=== PATIENT | male | born 1985 | race Hispanic/Latino ===

== ENCOUNTER 2017-09-14 22:05 | Inpatient (IN) | payer MEDICAID ==
[2017-09-14 22:05] VITALS: BMI 41.3
--- NOTE | 2017-09-14 22:18 | ED PDOC ---
Arrival/HPI - General Time Seen by Provider: 09/14/17 22:07 Historian: Patient - History of Present Illness Narrative History of Present Illness (Text): 09/14/17 22:15 Gee Saravia is 32 year old male who presents to the Emergency department brought in by EMS for substance abuse/possible overdose tonight. As per EMS, patient was found unresponsive at home with agonal respirations by a friend. EMS was notified and patient became more responsive en route to the hospital. As per EMS, friend was unsure what patient may have taken tonight. Patient states he "was tired and just fell asleep." Limited HPI and ROS secondary to patient's altered mental status. Time/Duration: Other (tonight) Symptom Course: Unchanged Activities at Onset: Light Context: Home Past Medical History - Provider Review Nursing Documentation Reviewed: Yes - Infectious Disease Hx of Infectious Diseases: None - Tetanus Immunization Tetanus Immunization: Unknown - Past Medical History Past Medical History: No Previous - Pulmonary Hx Respiratory Disorders: Yes Hx Sleep Apnea: Yes ( c pap does not know setting) - Integumentary Hx Dermatological Disorder: Yes (sutures upper right lip scab left forhead cheek ) - Musculoskeletal/Rheumatological Hx Fractures: Yes (LEFT WRIST RIGHT HAND) - Psychiatric Hx Anxiety: Yes Hx Substance Use: No - Surgical History Hx Open Reduction Internal Fixation: Yes (LEFT WRIST RIGHT HAND) - Anesthesia Hx Anesthesia: Yes Hx Anesthesia Reactions: No - Suicidal Assessment Feels Threatened In Home Enviroment: No Family/Social History - Physician Review Nursing Documentation Reviewed: Yes Family/Social History: Unknown Family HX Smoking Status: Current Some Days Smoker Hx Alcohol Use: No Hx Substance Use: No Allergies/Home Meds Allergies/Adverse Reactions: Allergies No Known Allergies Allergy (Verified 11/05/14 21:57) Home Medications: Home Meds Medication Instructions Recorded Confirmed Unobtainable 09/14/17 09/14/17 Review of Systems - Review of Systems Systems not reviewed;Unavailable: Altered Mental Status Physical Exam Vital Signs Reviewed: Yes Vital Signs Temp Pulse Resp BP Pulse Ox 09/15/17 00:15 104 H 16 138/84 96 09/14/17 23:49 102 H 20 143/66 95 09/14/17 22:56 99.0 F 109 H 20 138/87 97 Temperature: Afebrile Blood Pressure: Normal Pulse: Regular Pain Distress: None Mental Status: Positive for: other (Somnolent) - Systems Exam Head: Present: Atraumatic, Normocephalic Pupils: Present: PERRL Extroacular Muscles: Present: EOMI Conjunctiva: Present: Normal Mouth: Present: Moist Mucous Membranes Neck: Present: Normal Range of Motion Respiratory/Chest: Present: Clear to Auscultation, Good Air Exchange. No: Respiratory Distress, Accessory Muscle Use Cardiovascular: Present: Regular Rate and Rhythm, Normal S1, S2. No: Murmurs Abdomen: No: Tenderness, Distention, Peritoneal Signs Back: Present: Normal Inspection Upper Extremity: Present: Normal Inspection. No: Cyanosis, Edema Lower Extremity: Present: Normal Inspection. No: Edema Neurological: Present: GCS=15, CN II-XII Intact Skin: Present: Warm, Dry, Normal Color. No: Rashes Psychiatric: No: Alert (Somnolent) Medical Decision Making ED Course and Treatment: 09/14/17 22:15 Impression: 32 year old male brought in by EMS for substance abuse/possible overdose tonight. Plan: -- CXR -- Labs, alcohol level -- Urinalysis, urine drug screen -- Reassess and disposition Progress Notes: 09/14/17 22:48 Father now present at bedside. States pt is an IV heroin abuser. 09/14/17 22:57 Reviewed EKG, sinus tachycardia at [address]/T wave changes. Pt bradypneic. Narcan was ordered, Pt admits to heroin use, states he snorted heroin tonight. 09/14/17 23:10 Chest X-ray reviewed, shows questionable infiltrate in left upper lobe. 09/14/17 23:21 Pt somnolent again. Second dose of Narcan was ordered. Case discussed with Dr. Peralta, requests pt go to hospitalist service. 09/14/17 23:38 Case discussed with medical records secretary survey operations director, who is aware and agrees with plan. Forest Resources Professor paged. 09/14/17 23:50 Pt received 2 rounds of Narcan, due to bradynea and hypoxia. Chest X-ray shows left upper lobe developig infiltrate. Will cover for aspiration. Case discussed with Dr. Sanon, who is aware and agrees with plan. Pt will be admitted to the ICU for pneumonia and overdose under the hospitalist service. - Lab Interpretations Lab Results: 09/14/17 22:47 09/14/17 22:47 Lab Results 09/14/17 23:14: Urine Opiates Screen Positive H, Urine Methadone Screen Negative , Ur Barbiturates Screen Negative, Ur Phencyclidine Scrn Positive H, Ur Amphetamines Screen Negative, U Benzodiazepines Scrn Positive, U Oth Cocaine Metabols Positive H, U Cannabinoids Screen Positive H 09/14/17 23:14: Urine Color Yellow, Urine Appearance Clear, Urine pH 6.0, Ur Specific [place] 1.025, Urine Protein Negative, Urine Glucose (UA) Negative, Urine Ketones Negative, Urine Blood Negative, Urine Nitrate Negative, Urine Bilirubin Negative, Urine Urobilinogen 0.2, Ur Leukocyte Esterase Negative 09/14/17 22:47: TSH 3rd Generation 0.95 09/14/17 22:47: Hemoglobin A1c 5.6 09/14/17 22:47: Alcohol, Quantitative < 10 09/14/17 22:47: Salicylates < 1 L, Acetaminophen < 10.0 L 09/14/17 22:47: Sodium 145, Potassium 4.9, Chloride 106, Carbon Dioxide 29, Anion Gap 15, BUN 19, Creatinine 0.9, Est GFR ( Amer) > 60, Est GFR (Non- Af Amer) > 60, Random Glucose 100, Calcium 9.3, Total Bilirubin 0.3, AST 17, ALT 24, Alkaline Phosphatase 54, Total Protein 8.1, Albumin 4.3, Globulin 3.7, Albumin/Globulin Ratio 1.2 09/14/17 22:47: WBC 14.9 H, RBC 5.23, Hgb 14.9, Hct 45.5, MCV 87.0, MCH 28.5, MCHC 32.7, RDW 14.3, Plt Count 225, MPV 10.4, Gran % 80.1 H, Lymph % (Auto) 13.8 L, [place] % (Auto) 5.1, Eos % (Auto) 0.8 L, Baso % (Auto) 0.2, Gran # 11.97 H , Lymph # (Auto) 2.1, [place] # (Auto) 0.8 H, Eos # (Auto) 0.1, Baso # (Auto) 0.03 I have reviewed the lab results: Yes - RAD Interpretation Radiology Orders: 09/14/17 22:33 CHEST PORTABLE [RAD] Stat Marine Engine Machinist: ED Physician - EKG Interpretation Interpreted by ED Physician: Yes Type: 12 lead EKG - Medication Orders Current Medication Orders: Acetaminophen (Tylenol 325mg Tab) 650 mg PO Q6H PRN PRN Reason: Fever >100.4 F Albuterol/Ipratropium (Duoneb 3 Mg/0.5 Mg (3 Ml) Ud) 3 ml IH [id number] KD Last Admin: 09/15/17 13:26 Dose: 3 ml Enoxaparin Sodium (Lovenox) 40 mg SC DAILY KD PRN Reason: Protocol Last Admin: 09/15/17 14:06 Dose: 40 mg Subcutaneous Administrations Document 09/15/17 14:06 [facility] (Rec: 09/15/17 14:06 [id number] Injection Site MAR Injection Site Left Abdomen Charges for Administration # of Subcutaneous Administrations 1 Levofloxacin/Dextrose (Levaquin 750mg) 750 mg in 150 mls @ 100 mls/hr IVPB DAILY KD PRN Reason: Protocol Last Admin: 09/15/17 10:52 Dose: 100 mls/hr eMAR Start Stop Document 09/15/17 10:52 [facility] (Rec: 09/15/17 10:52 [id number]) Intravenous Solution Start Date 09/15/17 Start Time 10:52 End Date 09/15/17 End time 12:25 Total Infusion Time 93 Ondansetron HCl (Zofran Inj) 4 mg IVP Q6H PRN PRN Reason: Nausea/Vomiting Pantoprazole Sodium (Protonix Ec Tab) 40 mg PO 0600 KD Discontinued Medications Metronidazole (Flagyl) 500 mg in 100 mls @ 100 mls/hr IVPB STAT STA PRN Reason: Protocol Stop: 09/15/17 00:16 Last Admin: 09/14/17 23:32 Dose: 100 mls/hr eMAR Start Stop Document 09/14/17 23:32 AD (Rec: 09/14/17 23:36 AD [id number]) Intravenous Solution Start Date 09/14/17 Start Time 23:36 Levofloxacin/Dextrose (Levaquin 750mg) 750 mg in 150 mls @ 100 mls/hr IVPB STAT STA PRN Reason: Protocol Stop: 09/15/17 00:46 Last Admin: 09/15/17 01:55 Dose: 100 mls/hr Comments: wasn't given in ED eMAR Start Stop Document 09/15/17 01:55 [facility] (Rec: 09/15/17 01:56 [facility] [id number]) Intravenous Solution Start Date 09/15/17 Start Time 01:56 Metronidazole (Flagyl) 500 mg in 100 mls @ 100 mls/hr IVPB Q8 KD PRN Reason: Protocol Last Admin: 09/15/17 06:01 Dose: 100 mls/hr eMAR Start Stop Document 09/15/17 06:01 MG (Rec: 09/15/17 06:02 MG [id number]) Intravenous Solution Start Date 09/15/17 Start Time 06:01 End Date 09/15/17 End time 07:01 Total Infusion Time 60 Sodium Chloride (Sodium Chloride 0.9%) 1,000 mls @ 120 mls/hr IV .Q8H20M KD Last Admin: 09/15/17 14:08 Dose: 120 mls/hr eMAR Start Stop Document 09/15/17 14:08 [facility] (Rec: 09/15/17 14:08 [id number]) Intravenous Solution Start Date 09/15/17 Start Time 14:08 Naloxone HCl 2.4 mg/ Sodium (Chloride) 240 mls @ 100 mls/hr IV .Q2H24M ONE; 1 MG/HR PRN Reason: Protocol Stop: 09/15/17 02:57 Last Admin: 09/15/17 00:57 Dose: 100 mls/hr eMAR Start Stop Document 09/15/17 00:57 AD (Rec: 09/15/17 00:57 AD [id number]) Intravenous Solution Start Date 09/15/17 Start Time 00:57 Acetaminophen (Ofirmev) 1,000 mg in 100 mls @ 400 mls/hr IVPB Q6H PRN PRN Reason: Temperature Stop: 09/17/17 02:05 Last Admin: 09/15/17 02:18 Dose: 400 mls/hr eMAR Start Stop Document 09/15/17 02:18 [facility] (Rec: 09/15/17 02:18 [facility] [id number]) Intravenous Solution Start Date 09/15/17 Start Time 02:18 MAR Pain Assessment Document 09/15/17 02:18 [facility] (Rec: 09/15/17 02:18 [facility] [id number]) Pain Reassessment Is this a pain reassessment? No Sleep Is patient sleeping during reassessment? Yes Re-Assess: MAR Pain Assessment Document 09/15/17 03:18 [facility] (Rec: 09/15/17 04:25 [id number]) Pain Reassessment Is this a pain reassessment? No Sleep Is patient sleeping during reassessment? Yes Naloxone HCl 2.4 mg/ Sodium (Chloride) 240 mls @ 100 mls/hr IV .Q2H24M KD; 1 MG/HR PRN Reason: Protocol Stop: 09/15/17 10:56 Last Admin: 09/15/17 07:08 Dose: 100 mls/hr eMAR Start Stop Document 09/15/17 07:08 MG (Rec: 09/15/17 07:11 MG [id number]) Intravenous Solution Start Date 09/15/17 Start Time 07:09 End Date 09/15/17 End time 09:30 Total Infusion Time 141 Naloxone HCl (Narcan) 0.4 mg IVP STAT STA Stop: 09/14/17 22:48 Last Admin: 09/14/17 22:50 Dose: 0.4 mg IVP Administration Document 09/14/17 22:50 AD (Rec: 09/14/17 23:00 AD [id number]) Charges for Administration # of IVP Administrations 1 Naloxone HCl (Narcan) 1 mg IVP STAT STA Stop: 09/14/17 23:17 Last Admin: 09/14/17 23:20 Dose: 1 mg IVP Administration Document 09/14/17 23:20 AD (Rec: 09/14/17 23:36 AD [id number]) Charges for Administration # of IVP Administrations 1 Pantoprazole Sodium (Protonix Inj) 40 mg IVP DAILY KD Last Admin: 09/15/17 12:07 Dose: 40 mg IVP Administration Document 09/15/17 12:07 [facility] (Rec: 09/15/17 14:08 KAC [id number]) Charges for Administration # of IVP Administrations 1 - Scribe Statement The provider has reviewed the documentation as recorded by the Olya Erickson Provider Scribe Attestation: All medical record entries made by the Scribe were at my direction and personally dictated by me. I have reviewed the chart and agree that the record accurately reflects my personal performance of the history, physical exam, medical decision making, and the department course for this patient. I have also personally directed, reviewed, and agree with the discharge instructions and disposition. Disposition/Present on Arrival - Present on Arrival Any Indicators Present on Arrival: No History of DVT/PE: No History of Uncontrolled Diabetes: No Urinary Catheter: No History Surgical Site Infection Following: None - Disposition Have Diagnosis and Disposition been Completed?: Yes Diagnosis: Overdose, Pneumonia Disposition: HOSPITALIZED Disposition Time: 07:00 Patient Problems: Current Active Problems Problem Status Onset Overdose Acute Pneumonia Acute Condition: CRITICAL
[2017-09-14] MEDS ORDERED: Naloxone 0.4 mg/ml Inj (Adult) IVP STA ×2 (22:47→23:16)
[2017-09-14] MEDS ORDERED: Naloxone 0.4 mg/ml Inj (Adult) ONE (22:50)
[2017-09-14 22:55] LABS: BASO # 0.03 K/mm3 (0.0-2.0); BASO % 0.2 % (0.0-3.0); EOS # 0.1 (0.0-0.7); EOS % 0.8 % (1.5-5.0); GRAN # 11.97 (1.4-6.5); GRAN % 80.1 % (50.0-68.0); HEMOGLOBIN 14.9 g/dL (14.0-18.0); LYMPH # 2.1 (1.2-3.4); LYMPH % 13.8 % (22.0-35.0); MEAN CORPUSCULAR HEMOGLOBIN 28.5 pg (25.0-35.0); MEAN CORPUSCULAR HGB CONC 32.7 g/dl (31.0-37.0); MEAN PLATELET VOLUME 10.4 fl (7.0-11.0); MONO # 0.8 (0.1-0.6); MONO % 5.1 % (1.0-6.0); RBC 5.23 10^6/uL (3.5-6.1); RED CELL DISTRIBUTION WIDTH 14.3 % (11.5-14.5); WHITE BLOOD COUNT 14.9 10^3/ul (4.5-11.0)
[2017-09-14 23:05] LABS: ACETAMINOPHEN < 10.0 ug/ml (10.0-20.0); SALICYLATE < 1 mg/dL (2.0-20.0)
[2017-09-14 23:08] LABS: ALB/GLOB RATIO 1.2 (1.1-1.8); ALBUMIN 4.3 g/dL (3.0-4.8); ALT/SGPT 24 U/L (7-56); AST/SGOT 17 U/L (17-59); BLOOD UREA NITROGEN 19 mg/dL (7-21); CALCIUM 9.3 mg/dL (8.4-10.5); GFR AFRICAN-AMERICAN > 60; GFR NON-AFRICAN AMERICAN > 60
[2017-09-14] MEDS ORDERED: metroNIDAZOLE IV 500 mg/100 ml 500 MG/100 ML BAG IVPB STA (23:17)
[2017-09-14] MEDS ORDERED: levoFLOXacin 750 mg in D5W 750 MG/150 ML BAG IVPB STA (23:17)
[2017-09-14 23:20] LABS: URINE BILIRUBIN NEGATIVE (NEGATIVE); URINE BLOOD NEGATIVE (NEGATIVE); URINE GLUCOSE (UA) NEGATIVE (NEGATIVE); URINE LEUKOCYTE ESTERASE NEGATIVE Leu/uL (NEGATIVE); URINE PROTEIN NEGATIVE mg/dL (<30 mg/dL); URINE UROBILINOGEN 0.2 E.U./dL (<1 E.U./dL)
[2017-09-14 23:21] LABS: URINE APPEARANCE CLEAR (CLEAR); URINE COLOR YELLOW (YELLOW)
[2017-09-14 23:46] LABS: BARBITURATES, UR NEGATIVE (NEGATIVE); BENZODIAZEPINES, UR POSITIVE (NEGATIVE); OPIATES, UR POSITIVE (NEGATIVE); PHENCYCLIDINE, UR POSITIVE (NEGATIVE)
[2017-09-15] MEDS ORDERED: Naloxone 2.4 MG in Sodium Chloride 0.9% 244 ML IV ONE ×2 (00:13→00:34)
--- NOTE | 2017-09-15 00:26 | CP.PCM.HP ---
<George Vega - Last Filed: 09/15/17 03:09> History of Present Illness - History of Present Illness History of Present Illness: CC: Overdose Pt is a 32 yo M with PMH of sleep apnea (non-compliant with CPAP), varicose veins, chronic lower back pain, and polysubstance abuse brought in by EMS for possible overdose. History provided by mother. Pt has a friend visiting from [place] of [place]. Both patient and friend have been sleep deprived for the last few days. Pt was found by a friend unresponsive by friend in the basement of his parent's home, where he lives. The friend notified the patient's mother, who called EMS. On arrival to ED, patient was somnolent, unresponsive, agonal breathing, and hypoxic. A total of 1.4 mg of Narcan was given in the ED. Patient admitted to ED physician that he had snorted 4 bags of heroin. Further HPI and ROS limited due to patient's current mental status. PMD: [place] PMH: sleep apnea (non-compliant with CPAP), varicose veins, chronic lower back pain, and polysubstance abuse Surg: broken left wrist repair All: NKDA SH: Heroin, cocaine, and xanax use. 1-2 ppd for 15 yrs, occasional EtOH use. Lives in basement of parents house FHx: DM, HTN Medications: will confirm with [facility] in the AM Present on Admission - Present on Admission Any Indicators Present on Admission: No Review of Systems - Review of Systems Review of Systems: 12 point ROS limited due to patient's current mental status. Past Patient History - Infectious Disease Hx of Infectious Diseases: None - Tetanus Immunizations Tetanus Immunization: Unknown - Past Medical History & Family History Past Medical History?: Yes - Past Social History Smoking Status: Current Some Days Smoker - PULMONARY Hx Respiratory Disorders: Yes Hx Sleep Apnea: Yes ( c pap does not know setting) - INTEGUMENTARY Hx Dermatological Problems: Yes (sutures upper right lip scab left forhead cheek ) - MUSCULOSKELETAL/RHEUMATOLOGICAL Hx Fractures: Yes (LEFT WRIST RIGHT HAND) - PSYCHIATRIC Hx Anxiety: Yes Hx Substance Use: No - SURGICAL HISTORY Hx Open Reduction Internal Fixation: Yes (LEFT WRIST RIGHT HAND) - ANESTHESIA Hx Anesthesia: Yes Hx Anesthesia Reactions: No Meds Allergies/Adverse Reactions: Allergies Allergy/AdvReac Type Severity Reaction Status Date / Time No Known Allergies Allergy Verified 11/05/14 21:57 Physical Exam - Constitutional Appears: Confused, Other (Somnolent) - Head Exam Head Exam: NORMAL INSPECTION - Eye Exam Eye Exam: absent: Nystagmus, Periorbital swelling, Scleral icterus Pupil Exam: Miosis - ENT Exam ENT Exam: Mucous Membranes Dry - Neck Exam Neck exam: Positive for: Normal Inspection - Respiratory Exam Respiratory Exam: Rhonchi (Left upper lobe). absent: Accessory Muscle Use, Decreased Breath Sounds, Rales, Wheezes - Cardiovascular Exam Cardiovascular Exam: Tachycardia, +S1, +S2. absent: Diastolic murmur, Gallop, Rubs, Systolic Murmur - GI/Abdominal Exam GI & Abdominal Exam: Soft. absent: Distended, Guarding, Organomegaly, Rebound, Tenderness - Extremities Exam Additional comments: LLE swelling, LLE warm to touch compared to RLE - Back Exam Back exam: NORMAL INSPECTION - Neurological Exam Neurological exam: Altered Additional comments: Oriented to person only GCS 12: opens eyes to speech (3), speech is confused (4), localizes to pain (5) - Skin Skin Exam: Dry, Normal Color, Warm Additional comments: Diffuse excoriations throughout body Results - Vital Signs Recent Vital Signs: Last Vital Signs Temp 99.0 F 09/14/17 22:56 Pulse 102 H 09/14/17 23:49 Resp 20 09/14/17 23:49 BP 143/66 09/14/17 23:49 Pulse Ox 95 09/14/17 23:49 - Labs Result Diagrams: 09/14/17 22:47 09/14/17 22:47 Labs: Laboratory Results - last 24 hr 09/14/17 09/14/17 09/14/17 22:47 22:47 22:47 WBC 14.9 H RBC 5.23 Hgb 14.9 Hct 45.5 MCV 87.0 MCH 28.5 MCHC 32.7 RDW 14.3 Plt Count 225 MPV 10.4 Gran % 80.1 H Lymph % (Auto) 13.8 L [place] % (Auto) 5.1 Eos % (Auto) 0.8 L Baso % (Auto) 0.2 Gran # 11.97 H Lymph # (Auto) 2.1 [place]aines # (Auto) 0.8 H Eos # (Auto) 0.1 Baso # (Auto) 0.03 Sodium 145 Potassium 4.9 Chloride 106 Carbon Dioxide 29 Anion Gap 15 BUN 19 Creatinine 0.9 Est GFR ( Amer) > 60 Est GFR (Non-Af Amer) > 60 Random Glucose 100 Calcium 9.3 Total Bilirubin 0.3 AST 17 ALT 24 Alkaline Phosphatase 54 Total Protein 8.1 Albumin 4.3 Globulin 3.7 Albumin/Globulin Ratio 1.2 Urine Color Urine Appearance Urine pH Ur Specific [place] Urine Protein Urine Glucose (UA) Urine Ketones Urine Blood Urine Nitrate Urine Bilirubin Urine Urobilinogen Ur Leukocyte Esterase Salicylates < 1 L Urine Opiates Screen Urine Methadone Screen Acetaminophen < 10.0 L Ur Barbiturates Screen Ur Phencyclidine Scrn Ur Amphetamines Screen U Benzodiazepines Scrn U Oth Cocaine Metabols U Cannabinoids Screen Alcohol, Quantitative 09/14/17 09/14/17 09/14/17 22:47 23:14 23:14 WBC RBC Hgb Hct MCV MCH MCHC RDW Plt Count MPV Gran % Lymph % (Auto) [place] % (Auto) Eos % (Auto) Baso % (Auto) Gran # Lymph # (Auto) [place] # (Auto) Eos # (Auto) Baso # (Auto) Sodium Potassium Chloride Carbon Dioxide Anion Gap BUN Creatinine Est GFR ( Amer) Est GFR (Non-Af Amer) Random Glucose Calcium Total Bilirubin AST ALT Alkaline Phosphatase Total Protein Albumin Globulin Albumin/Globulin Ratio Urine Color Yellow Urine Appearance Clear Urine pH 6.0 Ur Specific [place] 1.025 Urine Protein Negative Urine Glucose (UA) Negative Urine Ketones Negative Urine Blood Negative Urine Nitrate Negative Urine Bilirubin Negative Urine Urobilinogen 0.2 Ur Leukocyte Esterase Negative Salicylates Urine Opiates Screen Positive H Urine Methadone Screen Negative Acetaminophen Ur Barbiturates Screen Negative Ur Phencyclidine Scrn Positive H Ur Amphetamines Screen Negative U Benzodiazepines Scrn Positive U Oth Cocaine Metabols Positive H U Cannabinoids Screen Positive H Alcohol, Quantitative < 10 Assessment & Plan - Assessment and Plan (Free Text) Assessment: 32 yo M with PMH of sleep apnea (non-compliant with CPAP), varicose veins, chronic lower back pain, and polysubstance abuse admitted to ICU for substance abuse/overdose with mild respiratory alkalosis possibly 2/2 fever or overdose. Plan: Neuro - GCS 12 - UDS positive for opiates, benzodiazepines, cocaine, PCP, and cannabinoids - Narcan drip 1mg/hr, titrate down as mentation improves - Neurochecks Q1h - Seizure and Fall precautions - Hold CT head until mentation improves Pulm - CXR shows possible infiltrate in left upper lobe - Titrate O2 to keep SaO2 > 92% - Aspiration precautions - CPAP HS Cardio - EKG showed sinus tachycardia, rate 103, QTc 463 - Maintain euvolemia, SBP 120-140 - Maintain MAP > 65 GI - NPO - Zofran prn for nausea - Protonix for GI PPx Renal - BUN:Cr > 20 likely 2/2 dehydration - NS at 120 cc/hr - Maintain [place] catheter - Strict I's and O's Endocrine - Maintain euglycemia - TSH - HgbA1c Heme - H/H and Coags WNL - Venous doppler LLE r/o DVT ID - Febrile (102 F), leukocytosis - Blood cultures ordered - UA negative - CXR shows possible infiltrate in left upper lobe - ABG: pH 7.45, CO2 35, O2 135, lactate 1.0 - IV tylenol - Flagyl 500 mg IVPB q8h - Levaquin 750 mg IVPB daily Skin - Diffuse excoriations, monitor for cellulitis GI/DVT PPx: - Protonix - Hold lovenox, pending CT scan - Hold SCDs until LE doppler Pt seen and discussed in detail with Dr. Sanon. Jed Vega, PGY1 <Aubrey Sanon Q - Last Filed: 09/15/17 06:59> Results - Vital Signs Recent Vital Signs: Last Vital Signs Temp 102 F H 09/15/17 01:22 Pulse 89 09/15/17 06:00 Resp 24 09/15/17 04:50 BP 143/85 09/15/17 04:43 Pulse Ox 98 09/15/17 04:50 - Labs Result Diagrams: 09/14/17 22:47 09/14/17 22:47 Labs: Laboratory Results - last 24 hr 09/14/17 09/15/17 09/15/17 23:55 02:08 03:37 PT 11.1 INR 0.97 APTT 27.9 pCO2 35 pO2 135.0 H HCO3 24.3 ABG pH 7.45 ABG Total CO2 25.4 ABG O2 Saturation 99.9 H ABG Base Excess 0.7 ABG Potassium 3.7 Sodium 141.0 Chloride 110.0 H Glucose 105 Lactate 1.0 FiO2 40.0 POC Glucose (mg/dL) 89 Arterial Blood Potassium 3.7 Attending/Attestation - Attestation I have personally seen and examined this patient.: Yes I have fully participated in the care of the patient.: Yes I have reviewed all pertinent clinical information: Yes Notes (Text): 09/15/17 06:57 I agree with the above mentioned note and exam by the resident with the addition /exception of the followin32 y/o male with a PMHx polysubstance abuse, ISAIAS was brought to the ED via EMS for decreased responsiveness. Patient was found to have abused multiple substances, admitted to snorting 4 bags of heroin. Heroin overdose, with intent unknown at this point (intentional vs accidental). Patient was treated with narcan in the ED with transient responsiveness; he was placed on a narcan drip in the ICU. Patient also appears to have aspiration pneumonia as well. labs and images reviewed case d/w Dr. Acevedo in the ED total time of care: 35 minutes
[2017-09-15 00:43] LABS: INR 0.97 (0.93-1.08); PARTIAL THROMBOPLASTIN TIME 27.9 Seconds (25.1-36.5); PROTHROMBIN TIME 11.1 SECONDS (9.4-12.5)
[2017-09-15] MEDS ORDERED: SODIUM CHLORIDE 0.9% IV ONE (00:45)
[2017-09-15] MEDS ORDERED: NALOXONE IV ONE (00:45)
[2017-09-15] MEDS: Sodium Chloride 0.9% 1,000 ML IV SCH ×2 (00:57→14:08)
[2017-09-15 02:11] LABS: ARTERIAL BLOOD GAS HCO3 24.3 mmol/L (21-28); ARTERIAL BLOOD GAS O2 SAT 99.9 % (95-98); ARTERIAL BLOOD GAS PCO2 35 mm/Hg (35-45); ARTERIAL BLOOD GAS PH 7.45 (7.35-7.45); ARTERIAL BLOOD GAS TCO2 25.4 mmol.L (22-28)
[2017-09-15] MEDS: SODIUM CHLORIDE 0.9% IV SCH ×2 (04:29→07:08)
[2017-09-15] MEDS: NALOXONE IV SCH ×2 (04:29→07:08)
[2017-09-15] MEDS ORDERED: metroNIDAZOLE IV 500 mg/100 ml 500 MG/100 ML BAG IVPB SCH (06:00)
[2017-09-15 07:30] LABS: HEMOGLOBIN 14.7 g/dL (14.0-18.0); MEAN CELL VOLUME 84.5 fl (80.0-105.0); MEAN CORPUSCULAR HEMOGLOBIN 28.5 pg (25.0-35.0); MEAN CORPUSCULAR HGB CONC 33.8 g/dl (31.0-37.0); MEAN PLATELET VOLUME 9.8 fl (7.0-11.0); RBC 5.15 10^6/uL (3.5-6.1); RED CELL DISTRIBUTION WIDTH 14.2 % (11.5-14.5); WHITE BLOOD COUNT 24.4 10^3/ul (4.5-11.0)
[2017-09-15 07:55] LABS: ALB/GLOB RATIO 1.2 (1.1-1.8); ALBUMIN 4.1 g/dL (3.0-4.8); ALT/SGPT 31 U/L (7-56); AST/SGOT 15 U/L (17-59); BLOOD UREA NITROGEN 13 mg/dL (7-21); CALCIUM 9.2 mg/dL (8.4-10.5); GFR AFRICAN-AMERICAN > 60; GFR NON-AFRICAN AMERICAN > 60
--- NOTE | 2017-09-15 08:13 | RAD ---
HISTORY: pysch COMPARISON: No prior. FINDINGS: LUNGS: There is an infiltrate in the left lung apex. This could represent pneumonia or chronic scarring. There are no prior studies for comparison PLEURA: No significant pleural effusion identified, no pneumothorax apparent. CARDIOVASCULAR: Normal. OSSEOUS STRUCTURES: No significant abnormalities. VISUALIZED UPPER ABDOMEN: Normal. OTHER FINDINGS: None. IMPRESSION: There is an infiltrate in the left lung apex. This could represent pneumonia or chronic scarring. There are no prior studies for comparison
--- NOTE | 2017-09-15 09:23 | CON ---
DATE: 09/15/2017 HISTORY OF PRESENT ILLNESS: This is a 32-year-old gentleman without significant past medical history; however, with the history of IV heroin abuse, who was brought into [facility] ER with substantially altered mental status, somnolence and questionable ability to protect his airways. The patient, however, responded to Narcan initially boluses and then drip and his gas exchange and ventilatory parameters substantially improved as well as his mental status. He still was very somnolent and was admitted to ICU for further monitoring and management. He is currently on Narcan drip at 1 mg per hour. Of note, the patient's drug screen test showed positivity for PCP, marijuana, cocaine, heroin. No nausea. No vomiting. No diarrhea. No constipation. The patient was started antibiotics for presumed aspiration pneumonia. PAST MEDICAL HISTORY: Sleep apnea, varicose veins, chronic low back pain and polysubstance abuse. PAST SURGICAL HISTORY: The patient has broken left wrist repair. ALLERGIES: NKDA. SOCIAL HISTORY: The patient is known for abuse of heroin, cocaine, Xanax. He is a smoker, one to two pack a day for 15 years. Occasional alcohol use. He lives at the basement of parents' house. FAMILY HISTORY: Noncontributory. MEDICATIONS AT HOME: None. REVIEW OF SYSTEMS: Review of 12-organ system other than mentioned in history of present illness is negative. PHYSICAL EXAMINATION: VITAL SIGNS: Heart rate 89, blood pressure 143/85, respiratory rate 24, oxygen saturation 98% on room air. ENT: Head and neck atraumatic. LUNGS: Clear auscultation bilaterally. Good air entry. No snoring. No stridor. HEART: Regular rate and rhythm. S1, S2 normal. ABDOMEN: Soft, nontender and nondistended. MUSCULOSKELETAL: Some asymmetric, even though still trace, swelling in the left lower extremity compared with the right one. Venous Doppler of the lower extremities ordered to rule out DVT especially in the setting of known history of varicose veins. The patient is on DVT prophylaxis. SKIN: Moist. PSYCH: The patient is somnolent; however, easily arousable and appears to be oriented x2 when asked about his name and place. LABORATORY DATA: Sodium 145, potassium 4.9, chloride 106, carbon dioxide 29, BUN 19, creatinine 0.9, glucose 89, calcium 9.3, AST 17, ALT 24, bilirubin 0.3, TSH 0.95, albumin 4.3. WBC 24.4 (the patient is on levofloxacin and metronidazole), his hemoglobin 14.7, platelet count 195. ABG showed last admission to ICU showed 7.45/35/135 on 40% FIO2. Urine drug screen positive for opiates, PCP, cocaine, cannabinoids. INR 0.97. Urine negative for leukocyte esterase and nitrites. Chest x-ray appeared to be no acute pulmonary disease; however, cannot rule out left upper lobe infiltrate. ASSESSMENT AND PLAN: This is a 32-year-old gentleman, who presented to ICU for questionable ability to protect his airways and low-threshold for intubation. He was started on Narcan drip and appears to be improved from mental status perspective. His ABG also appeared to be acceptable in terms of gas exchange and ventilatory parameters. His mental status is improving and he is oriented in time and place and appears to be more awake. He is on room air right now. He is hemodynamically stable. I will continue Narcan drip until his mental status somewhat more improved and then we will reassess his mental status off of Narcan drip. We will continue to target euvolemia, euglycemia, normothermia and oxygen saturation more than 90%. We will continue follow up his septic workup including blood culture, urine culture, procalcitonin. I will continue antibiotics at present time. I will order venous Doppler of lower extremities to rule out deep venous thrombosis and we will continue with deep venous thrombosis/gastrointestinal prophylaxis. ccm time 40 min Keanu Benites MD JACK
--- NOTE | 2017-09-15 09:45 | CARD ---
APPROVED REPORT EKG Measurement Heart [id number] <Conclusion> Poor data quality, interpretation may be adversely affected Sinus tachycardia Otherwise normal ECG
--- NOTE | 2017-09-15 10:39 | CT ---
PROCEDURE: CT HEAD WITHOUT CONTRAST. HISTORY: possible trauma COMPARISON: None available. TECHNIQUE: Axial computed tomography images were obtained through the head/brain without intravenous contrast. Radiation dose: Total exam DLP = 875 mGy-cm. This CT exam was performed using one or more of the following dose reduction techniques: Automated exposure control, adjustment of the mA and/or kV according to patient size, and/or use of iterative reconstruction technique. FINDINGS: HEMORRHAGE: No definitive intracranial hemorrhage. BRAIN: A 6.1 mm rounded hyperdensity in the anterior 3rd ventricle/ pineal region is noted. It appears less dense than the choroid plexus calcifications in the more posterior lateral ventricles. No dilatation of the frontal horns is seen. No 3rd ventricular dilatation noted. The stability this appearance is not known. A small hemorrhagic lesion here is believed unlikely. A pineal region lesion mass here with or without faint calcification (no dense calcification here) is a consideration. No atrophy or chronic microvascular ischemic changes. VENTRICLES: Unremarkable. No hydrocephalus. CALVARIUM: Unremarkable. PARANASAL SINUSES: Bilateral maxillary and ethmoidal sinusitis polypoid-like changes. The right maxillary sinusitis i-more extensive. Rightward nasal septal deviation MASTOID AIR CELLS: Unremarkable as visualized. No inflammatory changes. OTHER FINDINGS: None. 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 Consider MRI of the brain without with contrast for further evaluation. Sinusitis as above. Comments: Findings were called up and discussed directly with Dr. Benites in the ICU at approximately 10:35 a.m. on 09/15/2017
[2017-09-15] MEDS: levoFLOXacin 750 mg in D5W 750 MG/150 ML BAG IVPB SCH (10:52)
--- NOTE | 2017-09-15 11:24 | CP.CCUPN ---
<Marito Tucker - Last Filed: 09/15/17 11:03> CCU Subjective - Physician Review Subjective (Free Text): Patient seen and examined at bedside. Patient is lethargic, but arousable and appropriately answering questions. Patient denies any suicidal ideation. Denies chest pain, shortness of breath, nausea, vomiting, diarrhea, fever, chills. CCU Objective - Vital Signs / Intake & Output Intake and Output (Last 8hrs): Intake & Output 09/14/17 09/15/17 09/15/17 22:59 06:59 14:59 Intake Total 1520 Output Total 2200 Balance -680 Weight 239 lb Intake: IV 1520 Right Hand 1520 Output: Urine 2200 Urine, Voided 2200 Other: Voiding Method Urinal - Physical Exam Head: Positive for: Atraumatic, Normocephalic Pupils: Positive for: PERRL Extroacular Muscles: Positive for: EOMI Conjunctiva: Positive for: Normal Mouth: Positive for: Moist Mucous Membranes Neck: Positive for: Normal Range of Motion Respiratory/Chest: Positive for: Clear to Auscultation, Good Air Exchange. Negative for: Respiratory Distress, Accessory Muscle Use Cardiovascular: Positive for: Regular Rate and Rhythm, Normal S1, S2. Negative for: Murmurs Abdomen: Positive for: Normal Bowel Sounds. Negative for: Tenderness, Distention, Peritoneal Signs Back: Positive for: Normal Inspection Upper Extremity: Positive for: Normal Inspection. Negative for: Cyanosis, Edema Lower Extremity: Positive for: Edema (Left lower extremity edema ) Neurological: Positive for: GCS=15, CN II-XII Intact Skin: Positive for: Warm, Dry, Normal Color. Negative for: Rashes Psychiatric: Positive for: Alert (Somnolent), Oriented x 3, Normal Insight, Normal Concentration - Medications Active Medications: Active Medications Generic Name Dose Route Start Last Admin Trade Name Freq PRN Reason Stop Dose Admin Albuterol/Ipratropium 3 ml 09/15/17 14:00 Duoneb 3 Mg/0.5 Mg (3 Ml) Ud IH [id number] [facility] Enoxaparin Sodium 40 mg 09/15/17 10:00 Lovenox SC DAILY [facility] Protocol Metronidazole 500 mg in 100 mls @ 100 mls/hr 09/15/17 06:00 09/15/17 06:01 Flagyl IVPB 100 mls/hr Q8 KD Administration Protocol Levofloxacin/Dextrose 750 mg in 150 mls @ 100 mls/hr 09/15/17 10:00 09/15/17 10:52 Levaquin 750mg IVPB 100 mls/hr DAILY KD Administration Protocol Sodium Chloride 1,000 mls @ 120 mls/hr 09/15/17 00:30 09/15/17 00:57 Sodium Chloride 0.9% IV 120 mls/hr .Q8H20M KD Administration Acetaminophen 1,000 mg in 100 mls @ 400 mls/hr 09/15/17 02:04 09/15/17 02:18 Ofirmev IVPB 09/17/17 02:05 400 mls/hr Q6H PRN Administration Temperature Ondansetron HCl 4 mg 09/15/17 00:19 Zofran Inj IVP Q6H PRN Nausea/Vomiting Pantoprazole Sodium 40 mg 09/15/17 10:00 Protonix Inj IVP DAILY KD - Patient Studies Lab Studies: Lab Studies 09/15/17 09/15/17 09/15/17 Range/Units 07:38 07:20 07:20 WBC 24.4 H D (4.5-11.0) 10^3/ul RBC 5.15 (3.5-6.1) 10^6/uL Hgb 14.7 (14.0-18.0) g/dL Hct 43.5 (42.0-52.0) % MCV 84.5 (80.0-105.0) fl MCH 28.5 (25.0-35.0) pg MCHC 33.8 (31.0-37.0) g/dl RDW 14.2 (11.5-14.5) % Plt Count 195 (120.0-450.0) 10^3/uL MPV 9.8 (7.0-11.0) fl PT (9.4-12.5) SECONDS INR (0.93-1.08) APTT (25.1-36.5) Seconds pCO2 (35-45) mm/Hg pO2 (80-100) mm/Hg HCO3 (21-28) mmol/L ABG pH (7.35-7.45) ABG Total CO2 (22-28) mmol.L ABG O2 Saturation (95-98) % ABG Base Excess (-2.0-3.0) mmol/L ABG Potassium (3.6-5.2) mmol/L Sodium 145 (132-148) mmol/L Chloride 110 H (98-107) mmol/L Glucose (75-110) mg/dl Lactate (0.7-2.1) mmol/L FiO2 % Potassium 4.0 (3.6-5.0) mmol/L Carbon Dioxide 23 (21-33) mmol/L Anion Gap 16 (10-20) BUN 13 (7-21) mg/dL Creatinine 0.7 L (0.8-1.5) mg/dl Est GFR ( Amer) > 60 Est GFR (Non-Af Amer) > 60 POC Glucose (mg/dL) 95 (65-110) mg/dL Random Glucose 105 (70-110) mg/dL Calcium 9.2 (8.4-10.5) mg/dL Phosphorus 3.4 (2.5-4.5) mg/dL Magnesium 1.9 (1.7-2.2) mg/dL Total Bilirubin 1.0 (0.2-1.3) mg/dL AST 15 L (17-59) U/L ALT 31 (7-56) U/L Alkaline Phosphatase 48 (38-126) U/L Total Protein 7.5 (5.8-8.3) g/dL Albumin 4.1 (3.0-4.8) g/dL Globulin 3.4 gm/dL Albumin/Globulin Ratio 1.2 (1.1-1.8) Arterial Blood Potassium (3.6-5.2) mmol/L 09/15/17 09/15/17 09/14/17 Range/Units 03:37 02:08 23:55 WBC (4.5-11.0) 10^3/ul RBC (3.5-6.1) 10^6/uL Hgb (14.0-18.0) g/dL Hct (42.0-52.0) % MCV (80.0-105.0) fl MCH (25.0-35.0) pg MCHC (31.0-37.0) g/dl RDW (11.5-14.5) % Plt Count (120.0-450.0) 10^3/uL MPV (7.0-11.0) fl PT 11.1 (9.4-12.5) SECONDS INR 0.97 (0.93-1.08) APTT 27.9 (25.1-36.5) Seconds pCO2 35 (35-45) mm/Hg pO2 135.0 H (80-100) mm/Hg HCO3 24.3 (21-28) mmol/L ABG pH 7.45 (7.35-7.45) ABG Total CO2 25.4 (22-28) mmol.L ABG O2 Saturation 99.9 H (95-98) % ABG Base Excess 0.7 (-2.0-3.0) mmol/L ABG Potassium 3.7 (3.6-5.2) mmol/L Sodium 141.0 (132-148) mmol/L Chloride 110.0 H (98-107) mmol/L Glucose 105 (75-110) mg/dl Lactate 1.0 (0.7-2.1) mmol/L FiO2 40.0 % Potassium (3.6-5.0) mmol/L Carbon Dioxide (21-33) mmol/L Anion Gap (10-20) BUN (7-21) mg/dL Creatinine (0.8-1.5) mg/dl Est GFR ( Amer) Est GFR (Non-Af Amer) POC Glucose (mg/dL) 89 (65-110) mg/dL Random Glucose (70-110) mg/dL Calcium (8.4-10.5) mg/dL Phosphorus (2.5-4.5) mg/dL Magnesium (1.7-2.2) mg/dL Total Bilirubin (0.2-1.3) mg/dL AST (17-59) U/L ALT (7-56) U/L Alkaline Phosphatase (38-126) U/L Total Protein (5.8-8.3) g/dL Albumin (3.0-4.8) g/dL Globulin gm/dL Albumin/Globulin Ratio (1.1-1.8) Arterial Blood Potassium 3.7 (3.6-5.2) mmol/L Laboratory Results - last 24 hr 09/14/17 09/15/17 09/15/17 23:55 02:08 03:37 WBC RBC Hgb Hct MCV MCH MCHC RDW Plt Count MPV PT 11.1 INR 0.97 APTT 27.9 pCO2 35 pO2 135.0 H HCO3 24.3 ABG pH 7.45 ABG Total CO2 25.4 ABG O2 Saturation 99.9 H ABG Base Excess 0.7 ABG Potassium 3.7 Sodium 141.0 Chloride 110.0 H Glucose 105 Lactate 1.0 FiO2 40.0 Potassium Carbon Dioxide Anion Gap BUN Creatinine Est GFR ( Amer) Est GFR (Non-Af Amer) POC Glucose (mg/dL) 89 Random Glucose Calcium Phosphorus Magnesium Total Bilirubin AST ALT Alkaline Phosphatase Total Protein Albumin Globulin Albumin/Globulin Ratio Arterial Blood Potassium 3.7 09/15/17 09/15/17 09/15/17 07:20 07:20 07:38 WBC 24.4 H D RBC 5.15 Hgb 14.7 Hct 43.5 MCV 84.5 MCH 28.5 MCHC 33.8 RDW 14.2 Plt Count 195 MPV 9.8 PT INR APTT pCO2 pO2 HCO3 ABG pH ABG Total CO2 ABG O2 Saturation ABG Base Excess ABG Potassium Sodium 145 Chloride 110 H Glucose Lactate FiO2 Potassium 4.0 Carbon Dioxide 23 Anion Gap 16 BUN 13 Creatinine 0.7 L Est GFR ( Amer) > 60 Est GFR (Non-Af Amer) > 60 POC Glucose (mg/dL) 95 Random Glucose 105 Calcium 9.2 Phosphorus 3.4 Magnesium 1.9 Total Bilirubin 1.0 AST 15 L ALT 31 Alkaline Phosphatase 48 Total Protein 7.5 Albumin 4.1 Globulin 3.4 Albumin/Globulin Ratio 1.2 Arterial Blood Potassium EKG/Cardiology Studies: Cardiology / EKG Studies 09/15/17 22:52 EKG [ELECTROCARDIOGRAM] Stat Comment: Reason For Exam: SUBSTANCE ABUSE Fingerstick Blood Sugar Results: 106 Critical Care Progress Note - Nutrition Nutrition: Nutrition Category Date Time Status Heart Healthy Diet [DIET] Diets 09/15/17 Lunch Ordered NPO Diet [DIET] Diets 09/15/17 Breakfast Ordered Assessment/Plan - Assessment and Plan (Free Text) Plan: 32 yo M with PMH of sleep apnea (non-compliant with CPAP), varicose veins, chronic lower back pain, and polysubstance abuse presents with respiratory distress secondary to polysubstance overdose. Patient is resting comfortably on nasal cannula. Head CT demonstrated hyperdense focus/mass in the pineal region, will consult neurology. Plan: Neuro Narcan drip stopped Lethargic AAOx3 Neurology consulted for abnormal head ct Pulm CXR shows possible infiltrate in left upper lobe Titrate O2 to keep SaO2 > 92% Aspiration precautions CPAP at night for sleep apnea Cardio Hemodynamically stable Maintain MAP > 65 GI HHD Protonix Renal Replenish electrolytes as needed Strict I's and O's Endocrine Maintain euglycemia HgbA1c Heme/ID Febrile, leukocytosis Levaquin and Flagyl LE US ordered to rule out DVT Lovenox for DVT PPX Tylenol prn Bhagwandpatricia, PGY-2 <Keanu Benites - Last Filed: 09/15/17 16:58> CCU Objective - Vital Signs / Intake & Output Vital Signs (Last 4 hours): Vital Signs Pulse Resp BP Pulse Ox 09/15/17 14:10 82 14 98 09/15/17 14:00 82 20 95 09/15/17 13:50 79 20 96 09/15/17 13:43 84 22 123/81 95 09/15/17 13:40 82 18 96 09/15/17 13:30 77 20 100 09/15/17 13:29 89 09/15/17 13:20 83 23 93 L 09/15/17 13:10 80 20 95 09/15/17 13:00 84 15 95 Intake and Output (Last 8hrs): Intake & Output 09/15/17 09/15/17 09/15/17 06:59 14:59 22:59 Intake Total 1520 Output Total 2200 Balance -680 Weight 239 lb Intake: IV 1520 Right Hand 1520 Output: Urine 2200 Urine, Voided 2200 Other: Voiding Method Urinal - Medications Active Medications: Active Medications Generic Name Dose Route Start Last Admin Trade Name Freq PRN Reason Stop Dose Admin Acetaminophen 650 mg 09/15/17 13:07 Tylenol 325mg Tab PO Q6H PRN Fever >100.4 F Albuterol/Ipratropium 3 ml 09/15/17 14:00 09/15/17 13:26 Duoneb 3 Mg/0.5 Mg (3 Ml) Ud IH 3 ml [id number] KD Administration Enoxaparin Sodium 40 mg 09/15/17 10:00 09/15/17 14:06 Lovenox SC 40 mg DAILY KD Administration Protocol Levofloxacin/Dextrose 750 mg in 150 mls @ 100 mls/hr 09/15/17 10:00 09/15/17 10:52 Levaquin 750mg IVPB 100 mls/hr DAILY KD Administration Protocol Sodium Chloride 1,000 mls @ 120 mls/hr 09/15/17 00:30 09/15/17 14:08 Sodium Chloride 0.9% IV 120 mls/hr .Q8H20M KD Administration Ondansetron HCl 4 mg 09/15/17 00:19 Zofran Inj IVP Q6H PRN Nausea/Vomiting Pantoprazole Sodium 40 mg 09/15/17 10:00 09/15/17 12:07 Protonix Inj IVP 40 mg DAILY KD Administration - Patient Studies Lab Studies: Lab Studies 09/15/17 09/15/17 09/15/17 Range/Units 15:55 11:08 07:38 WBC (4.5-11.0) 10^3/ul RBC (3.5-6.1) 10^6/uL Hgb (14.0-18.0) g/dL Hct (42.0-52.0) % MCV (80.0-105.0) fl MCH (25.0-35.0) pg MCHC (31.0-37.0) g/dl RDW (11.5-14.5) % Plt Count (120.0-450.0) 10^3/uL MPV (7.0-11.0) fl PT (9.4-12.5) SECONDS INR (0.93-1.08) APTT (25.1-36.5) Seconds pCO2 36 (35-45) mm/Hg pO2 81.0 (80-100) mm/Hg HCO3 22.3 (21-28) mmol/L ABG pH 7.40 (7.35-7.45) ABG Total CO2 23.4 (22-28) mmol.L ABG O2 Saturation 98.1 H (95-98) % ABG O2 Content 16.8 (15-23) ML/dl ABG Base Excess -2.1 L (-2.0-3.0) mmol/L ABG Hemoglobin 12.5 (11.7-17.4) g/dL ABG Carboxyhemoglobin 2.4 H (0.5-1.5) % POC ABG HHb (Measured) 1.8 (0-5) % ABG Methemoglobin 0.8 (0.0-3.0) % ABG O2 Capacity 17.1 (16-24) mL/dl ABG Potassium (3.6-5.2) mmol/L Hgb O2 Saturation 95.0 (95.0-98.0) % Sodium (132-148) mmol/L Chloride (98-107) mmol/L Glucose (75-110) mg/dl Lactate (0.7-2.1) mmol/L FiO2 21.0 % Potassium (3.6-5.0) mmol/L Carbon Dioxide (21-33) mmol/L Anion Gap (10-20) BUN (7-21) mg/dL Creatinine (0.8-1.5) mg/dl Est GFR ( Amer) Est GFR (Non-Af Amer) POC Glucose (mg/dL) 109 95 (65-110) mg/dL Random Glucose (70-110) mg/dL Calcium (8.4-10.5) mg/dL Phosphorus (2.5-4.5) mg/dL Magnesium (1.7-2.2) mg/dL Total Bilirubin (0.2-1.3) mg/dL AST (17-59) U/L ALT (7-56) U/L Alkaline Phosphatase (38-126) U/L Total Protein (5.8-8.3) g/dL Albumin (3.0-4.8) g/dL Globulin gm/dL Albumin/Globulin Ratio (1.1-1.8) Procalcitonin (0.19-0.49) NG/ML Arterial Blood Potassium (3.6-5.2) mmol/L Hep Bs Antigen (NEGATIVE) 09/15/17 09/15/17 09/15/17 Range/Units 07:30 07:20 07:20 WBC 24.4 H D (4.5-11.0) 10^3/ul RBC 5.15 (3.5-6.1) 10^6/uL Hgb 14.7 (14.0-18.0) g/dL Hct 43.5 (42.0-52.0) % MCV 84.5 (80.0-105.0) fl MCH 28.5 (25.0-35.0) pg MCHC 33.8 (31.0-37.0) g/dl RDW 14.2 (11.5-14.5) % Plt Count 195 (120.0-450.0) 10^3/uL MPV 9.8 (7.0-11.0) fl PT (9.4-12.5) SECONDS INR (0.93-1.08) APTT (25.1-36.5) Seconds pCO2 (35-45) mm/Hg pO2 (80-100) mm/Hg HCO3 (21-28) mmol/L ABG pH (7.35-7.45) ABG Total CO2 (22-28) mmol.L ABG O2 Saturation (95-98) % ABG O2 Content (15-23) ML/dl ABG Base Excess (-2.0-3.0) mmol/L ABG Hemoglobin (11.7-17.4) g/dL ABG Carboxyhemoglobin (0.5-1.5) % POC ABG HHb (Measured) (0-5) % ABG Methemoglobin (0.0-3.0) % ABG O2 Capacity (16-24) mL/dl ABG Potassium (3.6-5.2) mmol/L Hgb O2 Saturation (95.0-98.0) % Sodium 145 (132-148) mmol/L Chloride 110 H (98-107) mmol/L Glucose (75-110) mg/dl Lactate (0.7-2.1) mmol/L FiO2 % Potassium 4.0 (3.6-5.0) mmol/L Carbon Dioxide 23 (21-33) mmol/L Anion Gap 16 (10-20) BUN 13 (7-21) mg/dL Creatinine 0.7 L (0.8-1.5) mg/dl Est GFR ( Amer) > 60 Est GFR (Non-Af Amer) > 60 POC Glucose (mg/dL) (65-110) mg/dL Random Glucose 105 (70-110) mg/dL Calcium 9.2 (8.4-10.5) mg/dL Phosphorus 3.4 (2.5-4.5) mg/dL Magnesium 1.9 (1.7-2.2) mg/dL Total Bilirubin 1.0 (0.2-1.3) mg/dL AST 15 L (17-59) U/L ALT 31 (7-56) U/L Alkaline Phosphatase 48 (38-126) U/L Total Protein 7.5 (5.8-8.3) g/dL Albumin 4.1 (3.0-4.8) g/dL Globulin 3.4 gm/dL Albumin/Globulin Ratio 1.2 (1.1-1.8) Procalcitonin (0.19-0.49) NG/ML Arterial Blood Potassium (3.6-5.2) mmol/L Hep Bs Antigen Negative (NEGATIVE) 09/15/17 09/15/17 09/15/17 Range/Units 07:20 03:37 02:08 WBC (4.5-11.0) 10^3/ul RBC (3.5-6.1) 10^6/uL Hgb (14.0-18.0) g/dL Hct (42.0-52.0) % MCV (80.0-105.0) fl MCH (25.0-35.0) pg MCHC (31.0-37.0) g/dl RDW (11.5-14.5) % Plt Count (120.0-450.0) 10^3/uL MPV (7.0-11.0) fl PT (9.4-12.5) SECONDS INR (0.93-1.08) APTT (25.1-36.5) Seconds pCO2 35 (35-45) mm/Hg pO2 135.0 H (80-100) mm/Hg HCO3 24.3 (21-28) mmol/L ABG pH 7.45 (7.35-7.45) ABG Total CO2 25.4 (22-28) mmol.L ABG O2 Saturation 99.9 H (95-98) % ABG O2 Content (15-23) ML/dl ABG Base Excess 0.7 (-2.0-3.0) mmol/L ABG Hemoglobin (11.7-17.4) g/dL ABG Carboxyhemoglobin (0.5-1.5) % POC ABG HHb (Measured) (0-5) % ABG Methemoglobin (0.0-3.0) % ABG O2 Capacity (16-24) mL/dl ABG Potassium 3.7 (3.6-5.2) mmol/L Hgb O2 Saturation (95.0-98.0) % Sodium 141.0 (132-148) mmol/L Chloride 110.0 H (98-107) mmol/L Glucose 105 (75-110) mg/dl Lactate 1.0 (0.7-2.1) mmol/L FiO2 40.0 % Potassium (3.6-5.0) mmol/L Carbon Dioxide (21-33) mmol/L Anion Gap (10-20) BUN (7-21) mg/dL Creatinine (0.8-1.5) mg/dl Est GFR ( Amer) Est GFR (Non-Af Amer) POC Glucose (mg/dL) 89 (65-110) mg/dL Random Glucose (70-110) mg/dL Calcium (8.4-10.5) mg/dL Phosphorus (2.5-4.5) mg/dL Magnesium (1.7-2.2) mg/dL Total Bilirubin (0.2-1.3) mg/dL AST (17-59) U/L ALT (7-56) U/L Alkaline Phosphatase (38-126) U/L Total Protein (5.8-8.3) g/dL Albumin (3.0-4.8) g/dL Globulin gm/dL Albumin/Globulin Ratio (1.1-1.8) Procalcitonin 0.27 (0.19-0.49) NG/ML Arterial Blood Potassium 3.7 (3.6-5.2) mmol/L Hep Bs Antigen (NEGATIVE) 09/14/17 Range/Units 23:55 WBC (4.5-11.0) 10^3/ul RBC (3.5-6.1) 10^6/uL Hgb (14.0-18.0) g/dL Hct (42.0-52.0) % MCV (80.0-105.0) fl MCH (25.0-35.0) pg MCHC (31.0-37.0) g/dl RDW (11.5-14.5) % Plt Count (120.0-450.0) 10^3/uL MPV (7.0-11.0) fl PT 11.1 (9.4-12.5) SECONDS INR 0.97 (0.93-1.08) APTT 27.9 (25.1-36.5) Seconds pCO2 (35-45) mm/Hg pO2 (80-100) mm/Hg HCO3 (21-28) mmol/L ABG pH (7.35-7.45) ABG Total CO2 (22-28) mmol.L ABG O2 Saturation (95-98) % ABG O2 Content (15-23) ML/dl ABG Base Excess (-2.0-3.0) mmol/L ABG Hemoglobin (11.7-17.4) g/dL ABG Carboxyhemoglobin (0.5-1.5) % POC ABG HHb (Measured) (0-5) % ABG Methemoglobin (0.0-3.0) % ABG O2 Capacity (16-24) mL/dl ABG Potassium (3.6-5.2) mmol/L Hgb O2 Saturation (95.0-98.0) % Sodium (132-148) mmol/L Chloride (98-107) mmol/L Glucose (75-110) mg/dl Lactate (0.7-2.1) mmol/L FiO2 % Potassium (3.6-5.0) mmol/L Carbon Dioxide (21-33) mmol/L Anion Gap (10-20) BUN (7-21) mg/dL Creatinine (0.8-1.5) mg/dl Est GFR ( Amer) Est GFR (Non-Af Amer) POC Glucose (mg/dL) (65-110) mg/dL Random Glucose (70-110) mg/dL Calcium (8.4-10.5) mg/dL Phosphorus (2.5-4.5) mg/dL Magnesium (1.7-2.2) mg/dL Total Bilirubin (0.2-1.3) mg/dL AST (17-59) U/L ALT (7-56) U/L Alkaline Phosphatase (38-126) U/L Total Protein (5.8-8.3) g/dL Albumin (3.0-4.8) g/dL Globulin gm/dL Albumin/Globulin Ratio (1.1-1.8) Procalcitonin (0.19-0.49) NG/ML Arterial Blood Potassium (3.6-5.2) mmol/L Hep Bs Antigen (NEGATIVE) Laboratory Results - last 24 hr 09/14/17 09/15/17 09/15/17 23:55 02:08 03:37 WBC RBC Hgb Hct MCV MCH MCHC RDW Plt Count MPV PT 11.1 INR 0.97 APTT 27.9 pCO2 35 pO2 135.0 H HCO3 24.3 ABG pH 7.45 ABG Total CO2 25.4 ABG O2 Saturation 99.9 H ABG O2 Content ABG Base Excess 0.7 ABG Hemoglobin ABG Carboxyhemoglobin POC ABG HHb (Measured) ABG Methemoglobin ABG O2 Capacity ABG Potassium 3.7 Hgb O2 Saturation Sodium 141.0 Chloride 110.0 H Glucose 105 Lactate 1.0 FiO2 40.0 Potassium Carbon Dioxide Anion Gap BUN Creatinine Est GFR ( Amer) Est GFR (Non-Af Amer) POC Glucose (mg/dL) 89 Random Glucose Calcium Phosphorus Magnesium Total Bilirubin AST ALT Alkaline Phosphatase Total Protein Albumin Globulin Albumin/Globulin Ratio Procalcitonin Arterial Blood Potassium 3.7 Hep Bs Antigen 09/15/17 09/15/17 09/15/17 07:20 07:20 07:20 WBC 24.4 H D RBC 5.15 Hgb 14.7 Hct 43.5 MCV 84.5 MCH 28.5 MCHC 33.8 RDW 14.2 Plt Count 195 MPV 9.8 PT INR APTT pCO2 pO2 HCO3 ABG pH ABG Total CO2 ABG O2 Saturation ABG O2 Content ABG Base Excess ABG Hemoglobin ABG Carboxyhemoglobin POC ABG HHb (Measured) ABG Methemoglobin ABG O2 Capacity ABG Potassium Hgb O2 Saturation Sodium 145 Chloride 110 H Glucose Lactate FiO2 Potassium 4.0 Carbon Dioxide 23 Anion Gap 16 BUN 13 Creatinine 0.7 L Est GFR ( Amer) > 60 Est GFR (Non-Af Amer) > 60 POC Glucose (mg/dL) Random Glucose 105 Calcium 9.2 Phosphorus 3.4 Magnesium 1.9 Total Bilirubin 1.0 AST 15 L ALT 31 Alkaline Phosphatase 48 Total Protein 7.5 Albumin 4.1 Globulin 3.4 Albumin/Globulin Ratio 1.2 Procalcitonin 0.27 Arterial Blood Potassium Hep Bs Antigen 04/05/18 04/05/18 04/05/18 07:30 07:38 11:08 WBC RBC Hgb Hct MCV MCH MCHC RDW Plt Count MPV PT INR APTT pCO2 pO2 HCO3 ABG pH ABG Total CO2 ABG O2 Saturation ABG O2 Content ABG Base Excess ABG Hemoglobin ABG Carboxyhemoglobin POC ABG HHb (Measured) ABG Methemoglobin ABG O2 Capacity ABG Potassium Hgb O2 Saturation Sodium Chloride Glucose Lactate FiO2 Potassium Carbon Dioxide Anion Gap BUN Creatinine Est GFR ( Amer) Est GFR (Non-Af Amer) POC Glucose (mg/dL) 95 109 Random Glucose Calcium Phosphorus Magnesium Total Bilirubin AST ALT Alkaline Phosphatase Total Protein Albumin Globulin Albumin/Globulin Ratio Procalcitonin Arterial Blood Potassium Hep Bs Antigen Negative 09/15/17 15:55 WBC RBC Hgb Hct MCV MCH MCHC RDW Plt Count MPV PT INR APTT pCO2 36 pO2 81.0 HCO3 22.3 ABG pH 7.40 ABG Total CO2 23.4 ABG O2 Saturation 98.1 H ABG O2 Content 16.8 ABG Base Excess -2.1 L ABG Hemoglobin 12.5 ABG Carboxyhemoglobin 2.4 H POC ABG HHb (Measured) 1.8 ABG Methemoglobin 0.8 ABG O2 Capacity 17.1 ABG Potassium Hgb O2 Saturation 95.0 Sodium Chloride Glucose Lactate FiO2 21.0 Potassium Carbon Dioxide Anion Gap BUN Creatinine Est GFR ( Amer) Est GFR (Non-Af Amer) POC Glucose (mg/dL) Random Glucose Calcium Phosphorus Magnesium Total Bilirubin AST ALT Alkaline Phosphatase Total Protein Albumin Globulin Albumin/Globulin Ratio Procalcitonin Arterial Blood Potassium Hep Bs Antigen EKG/Cardiology Studies: Cardiology / EKG Studies 09/15/17 22:52 EKG [ELECTROCARDIOGRAM] Stat Comment: Reason For Exam: SUBSTANCE ABUSE Critical Care Progress Note - Nutrition Nutrition: Nutrition Category Date Time Status Heart Healthy Diet [DIET] Diets 09/15/17 Lunch Ordered Attending/Attestation - Attestation I have personally seen and examined this patient.: Yes I have fully participated in the care of the patient.: Yes I have reviewed all pertinent clinical information: Yes Notes (Text): 09/15/17 16:[address] Benites note
--- NOTE | 2017-09-15 12:57 | CP.PCM.CON ---
History of Present Illness - History of Present Illness History of Present Illness: 32 yr old male with pmh of significant heroin abuse for many years, presents to [place] ER, with overdose. Patient says that he smokes about 10 bags of heroine a day, and has never overdosed. He denies seizure, stroke, mva or head trauma. On exam he is able to follow commands, name and repeat. Patient was in his home, where he lives with his parents, and was found unresponsive by his friend, and brought to [place] [facility]. PMH/PSH: sleep apnea (non-compliant with CPAP), varicose veins, chronic lower back pain, and polysubstance abuse broken left wrist repair All: NKDA SH: Heroin, cocaine, and xanax use. 1-2 ppd for 15 yrs, occasional EtOH use. Currently unemployed. FHx: DM, HTN On exam: AAOX3. PERRL. EOMI. CN 2-12 normal. Motor: tone and strength normal. Sensory: intact to ft, pin, position and vibration sense. Cerebellar: f/n no dysmetria. Gait normal. no ataxia. +2 dtr ul and ll bl. Toes downgoing. No clonus. Past Patient History - Infectious Disease Hx of Infectious Diseases: None - Tetanus Immunizations Tetanus Immunization: Unknown - Past Medical History & Family History Past Medical History?: Yes - Past Social History Smoking Status: Current Some Days Smoker - PULMONARY Hx Respiratory Disorders: Yes Hx Sleep Apnea: Yes ( c pap does not know setting) - INTEGUMENTARY Hx Dermatological Problems: Yes (sutures upper right lip scab left forhead cheek ) - MUSCULOSKELETAL/RHEUMATOLOGICAL Hx Fractures: Yes (LEFT WRIST RIGHT HAND) - PSYCHIATRIC Hx Anxiety: Yes Hx Substance Use: No - SURGICAL HISTORY Hx Open Reduction Internal Fixation: Yes (LEFT WRIST RIGHT HAND) - ANESTHESIA Hx Anesthesia: Yes Hx Anesthesia Reactions: No Meds Allergies/Adverse Reactions: Allergies Allergy/AdvReac Type Severity Reaction Status Date / Time No Known Allergies Allergy Verified 11/05/14 21:57 - Medications Medications: Current Medications Albuterol/Ipratropium (Duoneb 3 Mg/0.5 Mg (3 Ml) Ud) 3 ml IH [id number] Enoxaparin Sodium (Lovenox) 40 mg SC DAILY [facility] PRN Reason: Protocol Metronidazole (Flagyl) 500 mg in 100 mls @ 100 mls/hr IVPB Q8 KD PRN Reason: Protocol Last Admin: 09/15/17 06:01 Dose: 100 mls/hr Levofloxacin/Dextrose (Levaquin 750mg) 750 mg in 150 mls @ 100 mls/hr IVPB DAILY [facility] PRN Reason: Protocol Last Admin: 09/15/17 10:52 Dose: 100 mls/hr Sodium Chloride (Sodium Chloride 0.9%) 1,000 mls @ 120 mls/hr IV .[id number] [facility] Last Admin: 09/15/17 00:57 Dose: 120 mls/hr Acetaminophen (Ofirmev) 1,000 mg in 100 mls @ 400 mls/hr IVPB Q6H PRN PRN Reason: Temperature Stop: 09/17/17 02:05 Last Admin: 09/15/17 02:18 Dose: 400 mls/hr Ondansetron HCl (Zofran Inj) 4 mg IVP Q6H PRN PRN Reason: Nausea/Vomiting Pantoprazole Sodium (Protonix Inj) 40 mg IVP DAILY [facility] Results - Vital Signs Recent Vital Signs: Last Vital Signs Temp 102 F H 09/15/17 01:22 Pulse 89 09/15/17 06:00 Resp 24 09/15/17 04:50 BP 143/85 09/15/17 04:43 Pulse Ox 98 09/15/17 04:50 - Labs Result Diagrams: 09/15/17 07:20 09/15/17 07:20 Labs: Laboratory Results - last 24 hr 09/14/17 09/15/17 09/15/17 23:55 02:08 03:37 WBC RBC Hgb Hct MCV MCH MCHC RDW Plt Count MPV PT 11.1 INR 0.97 APTT 27.9 pCO2 35 pO2 135.0 H HCO3 24.3 ABG pH 7.45 ABG Total CO2 25.4 ABG O2 Saturation 99.9 H ABG Base Excess 0.7 ABG Potassium 3.7 Sodium 141.0 Chloride 110.0 H Glucose 105 Lactate 1.0 FiO2 40.0 Potassium Carbon Dioxide Anion Gap BUN Creatinine Est GFR ( Amer) Est GFR (Non-Af Amer) POC Glucose (mg/dL) 89 Random Glucose Calcium Phosphorus Magnesium Total Bilirubin AST ALT Alkaline Phosphatase Total Protein Albumin Globulin Albumin/Globulin Ratio Arterial Blood Potassium 3.7 09/15/17 09/15/17 09/15/17 07:20 07:20 07:38 WBC 24.4 H D RBC 5.15 Hgb 14.7 Hct 43.5 MCV 84.5 MCH 28.5 MCHC 33.8 RDW 14.2 Plt Count 195 MPV 9.8 PT INR APTT pCO2 pO2 HCO3 ABG pH ABG Total CO2 ABG O2 Saturation ABG Base Excess ABG Potassium Sodium 145 Chloride 110 H Glucose Lactate FiO2 Potassium 4.0 Carbon Dioxide 23 Anion Gap 16 BUN 13 Creatinine 0.7 L Est GFR ( Amer) > 60 Est GFR (Non-Af Amer) > 60 POC Glucose (mg/dL) 95 Random Glucose 105 Calcium 9.2 Phosphorus 3.4 Magnesium 1.9 Total Bilirubin 1.0 AST 15 L ALT 31 Alkaline Phosphatase 48 Total Protein 7.5 Albumin 4.1 Globulin 3.4 Albumin/Globulin Ratio 1.2 Arterial Blood Potassium 09/15/17 11:08 WBC RBC Hgb Hct MCV MCH MCHC RDW Plt Count MPV PT INR APTT pCO2 pO2 HCO3 ABG pH ABG Total CO2 ABG O2 Saturation ABG Base Excess ABG Potassium Sodium Chloride Glucose Lactate FiO2 Potassium Carbon Dioxide Anion Gap BUN Creatinine Est GFR ( Amer) Est GFR (Non-Af Amer) POC Glucose (mg/dL) 109 Random Glucose Calcium Phosphorus Magnesium Total Bilirubin AST ALT Alkaline Phosphatase Total Protein Albumin Globulin Albumin/Globulin Ratio Arterial Blood Potassium - Imaging and Cardiology CT scan - head Status: Image reviewed by me, Report reviewed by me (ct head is normal, no hemorrhage, no stroke. ) Assessment & Plan - Assessment and Plan (Free Text) Assessment: 32 yr old male with polysubstance abuse, and sleep apnea who presents with overdose and now normal neurological examination. I do not feel that he had a seizure or a stroke, and his neuroimaging is normal as well. I will recommend that he be referred to psychiatry for rehab. MRi Brain is not needed at this time. Thank you for this interesting consult. we will follow. Dr. Karla Mccray MD, DPN
[2017-09-15] MEDS: Albuterol-Ipratrop 3 mg / 0.5 (3 ml) UD IH SCH ×2 (13:26→20:30)
[2017-09-15] MEDS: Enoxaparin 40 mg Syringe SC SCH (14:06)
[2017-09-15 16:05] LABS: ARTERIAL BLOOD GAS HCO3 22.3 mmol/L (21-28); ARTERIAL BLOOD GAS HEMOGLOBIN 12.5 g/dL (11.7-17.4); ARTERIAL BLOOD GAS O2 CAPACITY 17.1 mL/dl (16-24); ARTERIAL BLOOD GAS O2 CONTENT 16.8 ML/dl (15-23); ARTERIAL BLOOD GAS O2 SAT 98.1 % (95-98); ARTERIAL BLOOD GAS PCO2 36 mm/Hg (35-45); ARTERIAL BLOOD GAS TCO2 23.4 mmol.L (22-28)
--- NOTE | 2017-09-15 16:49 | US ---
PROCEDURE: Bilateral lower extremity venous duplex Doppler. HISTORY: DVT COMPARISON: Left lower extremity duplex venous ultrasound dated 01/21/2014. No prior right lower extremity imaging. TECHNIQUE: Bilateral common femoral, superficial femoral, popliteal, posterior tibial and peroneal veins were evaluated. Flow was assessed with color Doppler, compressibility, assessment of phasic flow and augmentation response. FINDINGS: COMMON FEMORAL VEIN: Right CFV: Unremarkable. Left CFV: Unremarkable. SUPERFICIAL FEMORAL VEIN: Right SFV: Unremarkable. Left SFV: Unremarkable. POPLITEAL VEIN: Right Popliteal: Unremarkable. Left Popliteal: Unremarkable. POSTERIOR TIBIAL VEIN: Right PTV: Unremarkable. Left PTV: Unremarkable. OTHER FINDINGS: Right peroneal vein: Unremarkable. Left peroneal vein: Unremarkable. IMPRESSION: No evidence of deep venous thrombosis.
[2017-09-15 16:53] LABS: HEPATITIS B SURFACE AG Negative (NEGATIVE)
[2017-09-15 16:59] LABS: HEPATITIS A IGM NEGATIVE (NEGATIVE); HEPATITIS B CORE AB NEGATIVE (NEGATIVE)
[2017-09-15 17:11] LABS: HEPATITIS C ANTIBODY NEGATIVE (NEGATIVE)
[2017-09-16] MEDS: Pantoprazole 40 mg EC Tab PO SCH (06:38)
[2017-09-16 06:43] LABS: HEMOGLOBIN 13.6 g/dL (14.0-18.0); MEAN CORPUSCULAR HEMOGLOBIN 27.9 pg (25.0-35.0); MEAN CORPUSCULAR HGB CONC 32.9 g/dl (31.0-37.0); MEAN PLATELET VOLUME 10.4 fl (7.0-11.0); RBC 4.87 10^6/uL (3.5-6.1); RED CELL DISTRIBUTION WIDTH 14.4 % (11.5-14.5); WHITE BLOOD COUNT 11.5 10^3/ul (4.5-11.0)
[2017-09-16 07:14] LABS: ALB/GLOB RATIO 1.1 (1.1-1.8); ALBUMIN 3.5 g/dL (3.0-4.8); ALT/SGPT 27 U/L (7-56); AST/SGOT 16 U/L (17-59); BLOOD UREA NITROGEN 9 mg/dL (7-21); CALCIUM 9.2 mg/dL (8.4-10.5); GFR AFRICAN-AMERICAN > 60; GFR NON-AFRICAN AMERICAN > 60
[2017-09-16] MEDS: Albuterol-Ipratrop 3 mg / 0.5 (3 ml) UD IH SCH ×3 (07:37→21:15)
[2017-09-16] MEDS: levoFLOXacin 750 mg in D5W 750 MG/150 ML BAG IVPB SCH (09:26)
[2017-09-16] MEDS: Enoxaparin 40 mg Syringe SC SCH (09:26)
--- NOTE | 2017-09-16 10:56 | CP.CCUPN ---
CCU Subjective - Physician Review Subjective (Free Text): Patient seen and examined at bedside. Patient states he is starting to go through withdrawal. He states is becoming diaphoretic. Denies chest pain, shortness of breath, nausea, vomiting, diarrhea, fever, chills. CCU Objective - Vital Signs / Intake & Output Vital Signs (Last 4 hours): Vital Signs Pulse Resp BP Pulse Ox 09/16/17 10:20 83 17 96 09/16/17 10:10 88 20 95 09/16/17 10:00 82 18 96 09/16/17 09:50 82 17 96 09/16/17 09:42 91 H 13 138/65 97 09/16/17 09:40 86 14 97 09/16/17 09:30 83 10 L 100 09/16/17 09:20 91 H 44 H 98 09/16/17 09:10 82 98 09/16/17 09:00 90 12 98 09/16/17 08:50 92 H 13 96 09/16/17 08:40 80 13 98 09/16/17 08:30 92 H 29 H 99 09/16/17 08:20 85 10 L 97 09/16/17 08:10 66 15 92 L 09/16/17 08:00 76 8 L 96 09/16/17 07:50 74 17 94 L 09/16/17 07:42 71 13 127/73 100 09/16/17 07:40 72 15 100 09/16/17 07:30 73 23 93 L 09/16/17 07:20 71 16 96 09/16/17 07:10 77 12 96 09/16/17 07:00 75 12 97 Intake and Output (Last 8hrs): Intake & Output 09/15/17 09/16/17 09/16/17 22:59 06:59 14:59 Intake Total 1560 Output Total 900 Balance 660 Intake: IV 1200 Right Hand 1200 Oral 360 Output: Urine 900 Urine, Voided 900 - Physical Exam Head: Positive for: Atraumatic, Normocephalic Pupils: Positive for: PERRL Extroacular Muscles: Positive for: EOMI Conjunctiva: Positive for: Normal Mouth: Positive for: Moist Mucous Membranes Neck: Positive for: Normal Range of Motion Respiratory/Chest: Positive for: Clear to Auscultation, Good Air Exchange. Negative for: Respiratory Distress, Accessory Muscle Use Cardiovascular: Positive for: Regular Rate and Rhythm, Normal S1, S2. Negative for: Murmurs Abdomen: Negative for: Tenderness, Distention, Peritoneal Signs Back: Positive for: Normal Inspection Upper Extremity: Positive for: Normal Inspection. Negative for: Cyanosis, Edema Lower Extremity: Positive for: Normal Inspection. Negative for: Edema Neurological: Positive for: GCS=15, CN II-XII Intact Skin: Positive for: Warm, Dry, Normal Color. Negative for: Rashes Psychiatric: Negative for: Alert (Somnolent) - Medications Active Medications: Active Medications Generic Name Dose Route Start Last Admin Trade Name Freq PRN Reason Stop Dose Admin Acetaminophen 650 mg 09/15/17 13:07 Tylenol 325mg Tab PO Q6H PRN Fever >100.4 F Albuterol/Ipratropium 3 ml 09/15/17 14:00 09/16/17 07:37 Duoneb 3 Mg/0.5 Mg (3 Ml) Ud IH 3 ml [id number] KD Administration Enoxaparin Sodium 40 mg 09/15/17 10:00 09/16/17 09:26 Lovenox SC 40 mg DAILY KD Administration Protocol Levofloxacin/Dextrose 750 mg in 150 mls @ 100 mls/hr 09/15/17 10:00 09/16/17 09:26 Levaquin 750mg IVPB 100 mls/hr DAILY KD Administration Protocol Ondansetron HCl 4 mg 09/15/17 00:19 Zofran Inj IVP Q6H PRN Nausea/Vomiting Pantoprazole Sodium 40 mg 09/16/17 06:00 09/16/17 06:38 Protonix Ec Tab PO 40 mg 0600 KD Administration - Patient Studies Lab Studies: Microbiology Studies 09/15/17 00:15 Blood Culture - Preliminary Blood NO GROWTH AFTER 24 HOURS 09/14/17 23:55 Blood Culture - Preliminary Blood NO GROWTH AFTER 24 HOURS Lab Studies 09/16/17 09/16/17 09/15/17 Range/Units 05:30 05:30 23:56 WBC 11.5 H D (4.5-11.0) 10^3/ul RBC 4.87 (3.5-6.1) 10^6/uL Hgb 13.6 L (14.0-18.0) g/dL Hct 41.4 L (42.0-52.0) % MCV 85.0 (80.0-105.0) fl MCH 27.9 (25.0-35.0) pg MCHC 32.9 (31.0-37.0) g/dl RDW 14.4 (11.5-14.5) % Plt Count 196 (120.0-450.0) 10^3/uL MPV 10.4 (7.0-11.0) fl pCO2 (35-45) mm/Hg pO2 (80-100) mm/Hg HCO3 (21-28) mmol/L ABG pH (7.35-7.45) ABG Total CO2 (22-28) mmol.L ABG O2 Saturation (95-98) % ABG O2 Content (15-23) ML/dl ABG Base Excess (-2.0-3.0) mmol/L ABG Hemoglobin (11.7-17.4) g/dL ABG Carboxyhemoglobin (0.5-1.5) % POC ABG HHb (Measured) (0-5) % ABG Methemoglobin (0.0-3.0) % ABG O2 Capacity (16-24) mL/dl Hgb O2 Saturation (95.0-98.0) % FiO2 % Sodium 145 (132-148) mmol/L Potassium 4.1 (3.6-5.0) mmol/L Chloride 109 H (98-107) mmol/L Carbon Dioxide 26 (21-33) mmol/L Anion Gap 14 (10-20) BUN 9 (7-21) mg/dL Creatinine 0.8 (0.8-1.5) mg/dl Est GFR ( Amer) > 60 Est GFR (Non-Af Amer) > 60 POC Glucose (mg/dL) 171 H (65-110) mg/dL Random Glucose 96 (70-110) mg/dL Calcium 9.2 (8.4-10.5) mg/dL Phosphorus 2.8 (2.5-4.5) mg/dL Magnesium 2.0 (1.7-2.2) mg/dL Total Bilirubin 0.9 (0.2-1.3) mg/dL AST 16 L (17-59) U/L ALT 27 (7-56) U/L Alkaline Phosphatase 43 (38-126) U/L Total Protein 6.8 (5.8-8.3) g/dL Albumin 3.5 (3.0-4.8) g/dL Globulin 3.3 gm/dL Albumin/Globulin Ratio 1.1 (1.1-1.8) Procalcitonin (0.19-0.49) NG/ML Hepatitis A IgM Ab (NEGATIVE) Hep Bs Antigen (NEGATIVE) Hep B Core IgM Ab (NEGATIVE) Hepatitis C Antibody (NEGATIVE) HIV 1&2 Ag/Ab, 4th Gen (Nonreactive) 09/15/17 09/15/17 09/15/17 Range/Units 15:55 11:08 07:30 WBC (4.5-11.0) 10^3/ul RBC (3.5-6.1) 10^6/uL Hgb (14.0-18.0) g/dL Hct (42.0-52.0) % MCV (80.0-105.0) fl MCH (25.0-35.0) pg MCHC (31.0-37.0) g/dl RDW (11.5-14.5) % Plt Count (120.0-450.0) 10^3/uL MPV (7.0-11.0) fl pCO2 36 (35-45) mm/Hg pO2 81.0 (80-100) mm/Hg HCO3 22.3 (21-28) mmol/L ABG pH 7.40 (7.35-7.45) ABG Total CO2 23.4 (22-28) mmol.L ABG O2 Saturation 98.1 H (95-98) % ABG O2 Content 16.8 (15-23) ML/dl ABG Base Excess -2.1 L (-2.0-3.0) mmol/L ABG Hemoglobin 12.5 (11.7-17.4) g/dL ABG Carboxyhemoglobin 2.4 H (0.5-1.5) % POC ABG HHb (Measured) 1.8 (0-5) % ABG Methemoglobin 0.8 (0.0-3.0) % ABG O2 Capacity 17.1 (16-24) mL/dl Hgb O2 Saturation 95.0 (95.0-98.0) % FiO2 21.0 % Sodium (132-148) mmol/L Potassium (3.6-5.0) mmol/L Chloride (98-107) mmol/L Carbon Dioxide (21-33) mmol/L Anion Gap (10-20) BUN (7-21) mg/dL Creatinine (0.8-1.5) mg/dl Est GFR ( Amer) Est GFR (Non-Af Amer) POC Glucose (mg/dL) 109 (65-110) mg/dL Random Glucose (70-110) mg/dL Calcium (8.4-10.5) mg/dL Phosphorus (2.5-4.5) mg/dL Magnesium (1.7-2.2) mg/dL Total Bilirubin (0.2-1.3) mg/dL AST (17-59) U/L ALT (7-56) U/L Alkaline Phosphatase (38-126) U/L Total Protein (5.8-8.3) g/dL Albumin (3.0-4.8) g/dL Globulin gm/dL Albumin/Globulin Ratio (1.1-1.8) Procalcitonin (0.19-0.49) NG/ML Hepatitis A IgM Ab Negative (NEGATIVE) Hep Bs Antigen Negative (NEGATIVE) Hep B Core IgM Ab Negative (NEGATIVE) Hepatitis C Antibody Negative (NEGATIVE) HIV 1&2 Ag/Ab, 4th Gen (Nonreactive) 09/15/17 09/15/17 Range/Units 07:30 07:20 WBC (4.5-11.0) 10^3/ul RBC (3.5-6.1) 10^6/uL Hgb (14.0-18.0) g/dL Hct (42.0-52.0) % MCV (80.0-105.0) fl MCH (25.0-35.0) pg MCHC (31.0-37.0) g/dl RDW (11.5-14.5) % Plt Count (120.0-450.0) 10^3/uL MPV (7.0-11.0) fl pCO2 (35-45) mm/Hg pO2 (80-100) mm/Hg HCO3 (21-28) mmol/L ABG pH (7.35-7.45) ABG Total CO2 (22-28) mmol.L ABG O2 Saturation (95-98) % ABG O2 Content (15-23) ML/dl ABG Base Excess (-2.0-3.0) mmol/L ABG Hemoglobin (11.7-17.4) g/dL ABG Carboxyhemoglobin (0.5-1.5) % POC ABG HHb (Measured) (0-5) % ABG Methemoglobin (0.0-3.0) % ABG O2 Capacity (16-24) mL/dl Hgb O2 Saturation (95.0-98.0) % FiO2 % Sodium (132-148) mmol/L Potassium (3.6-5.0) mmol/L Chloride (98-107) mmol/L Carbon Dioxide (21-33) mmol/L Anion Gap (10-20) BUN (7-21) mg/dL Creatinine (0.8-1.5) mg/dl Est GFR ( Amer) Est GFR (Non-Af Amer) POC Glucose (mg/dL) (65-110) mg/dL Random Glucose (70-110) mg/dL Calcium (8.4-10.5) mg/dL Phosphorus (2.5-4.5) mg/dL Magnesium (1.7-2.2) mg/dL Total Bilirubin (0.2-1.3) mg/dL AST (17-59) U/L ALT (7-56) U/L Alkaline Phosphatase (38-126) U/L Total Protein (5.8-8.3) g/dL Albumin (3.0-4.8) g/dL Globulin gm/dL Albumin/Globulin Ratio (1.1-1.8) Procalcitonin 0.27 (0.19-0.49) NG/ML Hepatitis A IgM Ab (NEGATIVE) Hep Bs Antigen (NEGATIVE) Hep B Core IgM Ab (NEGATIVE) Hepatitis C Antibody (NEGATIVE) HIV 1&2 Ag/Ab, 4th Gen Nonreactive (Nonreactive) Laboratory Results - last 24 hr 09/15/17 09/15/17 09/15/17 07:20 07:30 07:30 WBC RBC Hgb Hct MCV MCH MCHC RDW Plt Count MPV pCO2 pO2 HCO3 ABG pH ABG Total CO2 ABG O2 Saturation ABG O2 Content ABG Base Excess ABG Hemoglobin ABG Carboxyhemoglobin POC ABG HHb (Measured) ABG Methemoglobin ABG O2 Capacity Hgb O2 Saturation FiO2 Sodium Potassium Chloride Carbon Dioxide Anion Gap BUN Creatinine Est GFR ( Amer) Est GFR (Non-Af Amer) POC Glucose (mg/dL) Random Glucose Calcium Phosphorus Magnesium Total Bilirubin AST ALT Alkaline Phosphatase Total Protein Albumin Globulin Albumin/Globulin Ratio Procalcitonin 0.27 Hepatitis A IgM Ab Negative Hep Bs Antigen Negative Hep B Core IgM Ab Negative Hepatitis C Antibody Negative HIV 1&2 Ag/Ab, 4th Gen Nonreactive 09/15/17 09/15/17 09/15/17 11:08 15:55 23:56 WBC RBC Hgb Hct MCV MCH MCHC RDW Plt Count MPV pCO2 36 pO2 81.0 HCO3 22.3 ABG pH 7.40 ABG Total CO2 23.4 ABG O2 Saturation 98.1 H ABG O2 Content 16.8 ABG Base Excess -2.1 L ABG Hemoglobin 12.5 ABG Carboxyhemoglobin 2.4 H POC ABG HHb (Measured) 1.8 ABG Methemoglobin 0.8 ABG O2 Capacity 17.1 Hgb O2 Saturation 95.0 FiO2 21.0 Sodium Potassium Chloride Carbon Dioxide Anion Gap BUN Creatinine Est GFR ( Amer) Est GFR (Non-Af Amer) POC Glucose (mg/dL) 109 171 H Random Glucose Calcium Phosphorus Magnesium Total Bilirubin AST ALT Alkaline Phosphatase Total Protein Albumin Globulin Albumin/Globulin Ratio Procalcitonin Hepatitis A IgM Ab Hep Bs Antigen Hep B Core IgM Ab Hepatitis C Antibody HIV 1&2 Ag/Ab, 4th Gen 09/16/17 09/16/17 05:30 05:30 WBC 11.5 H D RBC 4.87 Hgb 13.6 L Hct 41.4 L MCV 85.0 MCH 27.9 MCHC 32.9 RDW 14.4 Plt Count 196 MPV 10.4 pCO2 pO2 HCO3 ABG pH ABG Total CO2 ABG O2 Saturation ABG O2 Content ABG Base Excess ABG Hemoglobin ABG Carboxyhemoglobin POC ABG HHb (Measured) ABG Methemoglobin ABG O2 Capacity Hgb O2 Saturation FiO2 Sodium 145 Potassium 4.1 Chloride 109 H Carbon Dioxide 26 Anion Gap 14 BUN 9 Creatinine 0.8 Est GFR ( Amer) > 60 Est GFR (Non-Af Amer) > 60 POC Glucose (mg/dL) Random Glucose 96 Calcium 9.2 Phosphorus 2.8 Magnesium 2.0 Total Bilirubin 0.9 AST 16 L ALT 27 Alkaline Phosphatase 43 Total Protein 6.8 Albumin 3.5 Globulin 3.3 Albumin/Globulin Ratio 1.1 Procalcitonin Hepatitis A IgM Ab Hep Bs Antigen Hep B Core IgM Ab Hepatitis C Antibody HIV 1&2 Ag/Ab, 4th Gen EKG/Cardiology Studies: Cardiology / EKG Studies 09/15/17 22:52 EKG [ELECTROCARDIOGRAM] Stat Comment: Reason For Exam: SUBSTANCE ABUSE Fingerstick Blood Sugar Results: 96 Critical Care Progress Note - Nutrition Nutrition: Nutrition Category Date Time Status Heart Healthy Diet [DIET] Diets 09/15/17 Lunch Ordered Assessment/Plan - Assessment and Plan (Free Text) Plan: 32 yo M with PMH of sleep apnea (non-compliant with CPAP), varicose veins, chronic lower back pain, and polysubstance abuse presents with respiratory distress secondary to polysubstance overdose. Patient resting comfortably and is hemodynamically stable. Patient will be started on methadone and ativan as per psych. Patient will be transferred to med/surg. Neuro AAOx3 Head CT with normal variant, as per neurology. No further intervention needed Pulm Titrate O2 to keep SaO2 > 92% Aspiration precautions CPAP at night for sleep apnea Cardio Hemodynamically stable Maintain MAP > 65 GI HHD Protonix Renal Replenish electrolytes as needed Strict I's and O's Endocrine Maintain euglycemia Heme/ID Levaquin, Flagyl stopped LE US negative for DVT Lovenox for DVT PPX Tylenol prn Caitlin, PGY-2
--- NOTE | 2017-09-16 14:25 | CP.PCM.PN ---
<Ye Lucas Rj - Last Filed: 09/16/17 14:17> Subjective - Date & Time of Evaluation Date of Evaluation: 09/16/17 Time of Evaluation: 14:17 - Subjective Subjective: Medicine progress note: Dr. Meek Patient seen and examined at bedside. Patient still drowsy. Denies any complaints at present. Objective - Vital Signs/Intake and Output Vital Signs (last 24 hours): Temp Pulse Resp BP Pulse Ox 102 F H 83 17 138/65 96 09/15/17 01:22 09/16/17 10:20 09/16/17 10:20 09/16/17 09:42 09/16/17 10:20 - Medications Medications: Current Medications Acetaminophen (Tylenol 325mg Tab) 650 mg PO Q6H PRN PRN Reason: Fever >100.4 F Albuterol/Ipratropium (Duoneb 3 Mg/0.5 Mg (3 Ml) Ud) 3 ml IH [id number] [facility] Last Admin: 09/16/17 14:00 Dose: 3 ml Enoxaparin Sodium (Lovenox) 40 mg SC DAILY [facility] PRN Reason: Protocol Last Admin: 09/16/17 09:26 Dose: 40 mg Levofloxacin/Dextrose (Levaquin 750mg) 750 mg in 150 mls @ 100 mls/hr IVPB DAILY [facility] PRN Reason: Protocol Last Admin: 09/16/17 09:26 Dose: 100 mls/hr Lorazepam (Ativan) 1 mg PO Q6H KD PRN Reason: Protocol Methadone HCl (Methadone) 10 mg PO TID PRN PRN Reason: Pain, moderate (4-7) Ondansetron HCl (Zofran Inj) 4 mg IVP Q6H PRN PRN Reason: Nausea/Vomiting Pantoprazole Sodium (Protonix Ec Tab) 40 mg PO 0600 [facility] Last Admin: 09/16/17 06:38 Dose: 40 mg - Labs Labs: 09/16/17 05:30 09/16/17 05:30 PT 11.1 SECONDS (9.4-12.5) 09/14/17 23:55 INR 0.97 (0.93-1.08) 09/14/17 23:55 APTT 27.9 Seconds (25.1-36.5) 09/14/17 23:55 - Constitutional Appears: Well - Head Exam Head Exam: ATRAUMATIC, NORMAL INSPECTION, NORMOCEPHALIC - Eye Exam Eye Exam: EOMI, Normal appearance, PERRL Pupil Exam: NORMAL ACCOMODATION, PERRL - ENT Exam ENT Exam: Mucous Membranes Moist, Normal Exam - Neck Exam Neck Exam: Full ROM, Normal Inspection. absent: Lymphadenopathy - Respiratory Exam Respiratory Exam: Clear to Ausculation Bilateral, NORMAL BREATHING PATTERN - Cardiovascular Exam Cardiovascular Exam: REGULAR RHYTHM, +S1, +S2. absent: Murmur - GI/Abdominal Exam GI & Abdominal Exam: Soft, Normal Bowel Sounds. absent: Tenderness - Extremities Exam Extremities Exam: Full ROM, Normal Capillary Refill, Normal Inspection. absent : Joint Swelling, Pedal Edema - Back Exam Back Exam: NORMAL INSPECTION - Neurological Exam Neurological Exam: Alert, Awake, CN II-XII Intact, Normal Gait, Oriented x3 - Psychiatric Exam Psychiatric exam: Normal Affect, Normal Mood - Skin Skin Exam: Dry, Intact, Normal Color, Warm Assessment and Plan - Assessment and Plan (Free Text) Assessment: Assessment 32 yo M with PMH of sleep apnea (non-compliant with CPAP), varicose veins, chronic lower back pain, and polysubstance abuse admitted to ICU for substance abuse/overdose with mild respiratory alkalosis possibly 2/2 fever or overdose. Possible LACHELLE Pneumonia Plan Polysubstance Overdose - Opiates, Benzodiazepines, Cocaine, PCP, and Marijuana - Narcan drip is stopped for now - Neurochecks, Seizure, Fall precautions - Head CT showed pineal mass but per Neuro, no need for MRI brain - Methadone 10 TID PRN Dyspnea, possibly 2/2 LACHELLE Pneumonia - Levaquin - Duonebs SIRS Criteria - Patient had tachycardia, fever, and leukocytosis on admission - No source of infection, not septic - Resolved Obstructive Sleep Apnea - BiPap Varicose Veins - Duplex ultrasound was ordered: negative for duplex Polysubstance Abuse - Advised cessation - Social work for drug rehab GI/DVT Prophylaxis - Protonix/Lovenox Dispo: Patient is out of ICU, still groggy. Zack monitor overnight <Ej Meek - Last Filed: 09/16/17 17:05> Objective - Vital Signs/Intake and Output Vital Signs (last 24 hours): Temp Pulse Resp BP Pulse Ox 102 F H 82 18 114/75 100 09/15/17 01:22 09/16/17 14:00 09/16/17 14:00 09/16/17 14:00 09/16/17 14:00 - Medications Medications: Current Medications Acetaminophen (Tylenol 325mg Tab) 650 mg PO Q6H PRN PRN Reason: Fever >100.4 F Albuterol/Ipratropium (Duoneb 3 Mg/0.5 Mg (3 Ml) Ud) 3 ml IH [id number] [facility] Last Admin: 09/16/17 14:00 Dose: 3 ml Enoxaparin Sodium (Lovenox) 40 mg SC DAILY KD PRN Reason: Protocol Last Admin: 09/16/17 09:26 Dose: 40 mg Levofloxacin/Dextrose (Levaquin 750mg) 750 mg in 150 mls @ 100 mls/hr IVPB DAILY KD PRN Reason: Protocol Last Admin: 09/16/17 09:26 Dose: 100 mls/hr Lorazepam (Ativan) 1 mg PO Q6H KD PRN Reason: Protocol Last Admin: 09/16/17 15:15 Dose: Not Given Methadone HCl (Methadone) 10 mg PO TID PRN PRN Reason: Pain, moderate (4-7) Last Admin: 09/16/17 16:25 Dose: 10 mg Ondansetron HCl (Zofran Inj) 4 mg IVP Q6H PRN PRN Reason: Nausea/Vomiting Pantoprazole Sodium (Protonix Ec Tab) 40 mg PO 0600 [facility] Last Admin: 09/16/17 06:38 Dose: 40 mg - Labs Labs: 09/16/17 05:30 09/16/17 05:30 PT 11.1 SECONDS (9.4-12.5) 09/14/17 23:55 INR 0.97 (0.93-1.08) 09/14/17 23:55 APTT 27.9 Seconds (25.1-36.5) 09/14/17 23:55 Attending/Attestation - Attestation I have personally seen and examined this patient.: Yes I have fully participated in the care of the patient.: Yes I have reviewed all pertinent clinical information, including history, physical exam and plan: Yes Notes (Text): 09/16/17 17:01 Attending note; Patient seen and examined with resident. Patient is a 32-year-old male with a history of chronic back pain, opiate dependency, polysubstance abuse is admitted after an apparent drug overdose. Patient denied any suicidal attempt. Urine drug screen is positive for opiates, benzos, cocaine, marijuana, PCP. Patient denied using any IV drugs. Patient was treated with IV Narcan and drip. Currently patient is alert and awake. Drug abuse cessation is strongly advised. Aspiration pneumonia; continue levofloxacin. Patient is afebrile and nontoxic. Anxiety/insomnia; patient is using Xanax on and off. Psychiatric evaluation appreciated. Continue IV Ativan when necessary. 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 Monitor closely for withdrawal symptoms. Transfer out of ICU. Upon discharge the patient will follow up with .
--- NOTE | 2017-09-17 02:30 | CON ---
DATE: HISTORY OF PRESENT ILLNESS: Patient is a single, 32-year-old white male with a history of polysubstance dependence and no formal psychiatric history. He presents here on 09/14/2017 status post overdose on heroin. Patient was found unresponsive at home by a friend and EMS brought him into the ER for stabilization. Psychiatry was called due to patient's history of insomnia and anxiety. Please note that I met with patient at bedside. Patient is alert and oriented to month, year, location and circumstances. His grooming is fair. Eye contact is fair and he is generally forthcoming and he indicates he can communicate easily. Patient denies having any psychiatric symptoms. Anxiety is generally up and down, but good control right now. He denies having any depression or hallucinations, and denies having any major concern. Patient really admits that he has drug dependency issue and takes multiple different drugs for recreational purposes, his favorite being heroin. Patient does not know of what was then precipitated his presentation to the ER; however, denies that he was trying to commit suicide and readily admits that he was using heroin to get high. He is ambivalent about attending rehab or detox even when this provider discussed the risks of continuous drug use including abrupt cessation of Xanax can cause seizures as well as benefits of rehab including therapy such as naltrexone. The patient is not interested in methadone or Suboxone replacement therapies. Of note, patient also reports that he uses cocaine, marijuana as well and Xanax occasionally, but not daily. Patient does not know how much he uses in general. Patient has generally been in fair control, thought process is coherent, he is not hallucinating, he is not demonstrating any delusion . His insight is good into his drug use; however, his judgment is poor. VITAL SIGNS: Reviewed by this provider. LABORATORY DATA: Reviewed by this provider. MEDICATIONS: Relevant psychiatric medications include methadone 10 mg p.o. t.i.d. p.r.n. PSYCHIATRIC HISTORY: Patient denies having any former psychiatric history, he has never seen a psychiatrist, never been psychiatrically hospitalized. Denies any suicide attempt. Denies any medication trial. Reports history of anxiety up and down; however, slowly in control right now. Does have insomnia at times, but denies any major distress from it. Readily admits that it is second time . SOCIAL HISTORY: Patient was born and raised in [place]. He is single. He has no children. He lives with his family including his mother and father. Patient graduated high school. He is not employed. Denies any alcohol issues; however, has a 7-year dependency on opioids. He currently uses intranasal heroin and daily. Patient also uses cocaine about 7 years as well. Patient reports occasional use of marijuana since his adolescence and Xanax approximately every other day unknown quantity. Patient reports prior history of rehab and prior history of sobriety for a period of 3 years because he was mandated by drug court. Otherwise, he has spent 5 years [facility] due to being found with 50 grams of coke. 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 Patient also reports 3 other prior arrests due to drug use or drug related issues, and most recently few months ago, he was caught with 2 g marijuana and given $125 fine. IMPRESSION: Polysubstance dependence including opioids, severe opioid use disorder, severe cocaine use disorder, marijuana abuse and benzodiazepine dependency versus abuse. RECOMMENDATIONS: At this time, patient does not present with any acute psychiatric symptoms, distress with psychiatric symptoms nor he does have a very obvious substance dependency issue. I recommend that once patient is medically cleared, he be referred to detox or rehab, and if this is not possible, he should be given acute dose of Ativan to ensure that he does not go into acute Xanax withdrawal as his Xanax use is wholly unknown. Patient does not meet criteria for inpatient psychiatric stabilization and patient does not want to explore this option either. Patient is somewhat interested, but not committed to exploring naltrexone options and he should be given referrals for substance abuse programs as well as detox and rehab programs for this purpose. Psychiatry will signoff at this time. Patient is psychiatrically cleared. Hunter Vaughn MD
[2017-09-17] MEDS: Pantoprazole 40 mg EC Tab PO SCH (05:38)
[2017-09-17] MEDS: Albuterol-Ipratrop 3 mg / 0.5 (3 ml) UD IH SCH (07:16)
[2017-09-17 07:26] LABS: HEMOGLOBIN 14.6 g/dL (14.0-18.0); MEAN CELL VOLUME 83.6 fl (80.0-105.0); MEAN CORPUSCULAR HEMOGLOBIN 28.1 pg (25.0-35.0); MEAN CORPUSCULAR HGB CONC 33.6 g/dl (31.0-37.0); MEAN PLATELET VOLUME 10.2 fl (7.0-11.0); RBC 5.19 10^6/uL (3.5-6.1); RED CELL DISTRIBUTION WIDTH 14.3 % (11.5-14.5); WHITE BLOOD COUNT 11.4 10^3/ul (4.5-11.0)
[2017-09-17 07:50] LABS: ALB/GLOB RATIO 1.1 (1.1-1.8); ALBUMIN 3.6 g/dL (3.0-4.8); ALT/SGPT 19 U/L (7-56); AST/SGOT 13 U/L (17-59); BLOOD UREA NITROGEN 9 mg/dL (7-21); CALCIUM 9.5 mg/dL (8.4-10.5); GFR AFRICAN-AMERICAN > 60; GFR NON-AFRICAN AMERICAN > 60
[2017-09-17 08:23] VITALS: BP 124/85; PULSE 88; RESP 20; TEMP 98.3; O2SAT 95
[2017-09-17] MEDS: levoFLOXacin 750 mg in D5W 750 MG/150 ML BAG IVPB SCH (08:59)
[2017-09-17] MEDS: Enoxaparin 40 mg Syringe SC SCH (09:00)
--- NOTE | 2017-09-18 17:13 | CP.PCM.DIS ---
<Fili Falcon - Last Filed: 09/18/17 16:21> Provider - Provider Date of Admission: 09/14/17 23:49 Attending physician: Ej Meek MD Primary care physician: Osmani Peralta MD Consults: Neuro: [facility] Psych: Love Time Spent in preparation of Discharge (in minutes): 41 Diagnosis - Discharge Diagnosis (1) Overdose Status: Acute (2) Pneumonia Status: Acute Hospital Course - Lab Results Lab Results: Micro Results 09/15/17 00:15 Blood Blood Culture - Preliminary NO GROWTH AFTER 3 DAYS 09/14/17 23:55 Blood Blood Culture - Preliminary NO GROWTH AFTER 3 DAYS 09/15/17 01:15 Nose MRSA Culture (Admit) - Final MRSA NOT DETECTED Most Recent Lab Values WBC 11.4 10^3/ul (4.5-11.0) H 09/17/17 07:00 RBC 5.19 10^6/uL (3.5-6.1) 09/17/17 07:00 Hgb 14.6 g/dL (14.0-18.0) 09/17/17 07:00 Hct 43.4 % (42.0-52.0) 09/17/17 07:00 MCV 83.6 fl (80.0-105.0) 09/17/17 07:00 MCH 28.1 pg (25.0-35.0) 09/17/17 07:00 MCHC 33.6 g/dl (31.0-37.0) 09/17/17 07:00 RDW 14.3 % (11.5-14.5) 09/17/17 07:00 Plt Count 230 10^3/uL (120.0-450.0) 09/17/17 07:00 MPV 10.2 fl (7.0-11.0) 09/17/17 07:00 Gran % 80.1 % (50.0-68.0) H 09/14/17 22:47 Lymph % (Auto) 13.8 % (22.0-35.0) L 09/14/17 22:47 [place] % (Auto) 5.1 % (1.0-6.0) 09/14/17 22:47 Eos % (Auto) 0.8 % (1.5-5.0) L 09/14/17 22:47 Baso % (Auto) 0.2 % (0.0-3.0) 09/14/17 22:47 Gran # 11.97 (1.4-6.5) H 09/14/17:47 Lymph # (Auto) 2.1 (1.2-3.4) 09/14/17:47 [place] # (Auto) 0.8 (0.1-0.6) H 09/14/17:47 Eos # (Auto) 0.1 (0.0-0.7) 09/14/17:47 Baso # (Auto) 0.03 K/mm3 (0.0-2.0) 09/14/17:47 PT 11.1 SECONDS (9.4-12.5) 09/14/17 23:55 INR 0.97 (0.93-1.08) 09/14/17 23:55 APTT 27.9 Seconds (25.1-36.5) 09/14/17 23:55 pCO2 36 mm/Hg (35-45) 09/15/17 15:55 pO2 81.0 mm/Hg (80-100) 09/15/17 15:55 HCO3 22.3 mmol/L (21-28) 09/15/17 15:55 ABG pH 7.40 (7.35-7.45) 09/15/17 15:55 ABG Total CO2 23.4 mmol.L (22-28) 09/15/17 15:55 ABG O2 Saturation 98.1 % (95-98) H 09/15/17 15:55 ABG O2 Content 16.8 ML/dl (15-23) 09/15/17 15:55 ABG Base Excess -2.1 mmol/L (-2.0-3.0) L 09/15/17 15:55 ABG Hemoglobin 12.5 g/dL (11.7-17.4) 09/15/17 15:55 ABG Carboxyhemoglobin 2.4 % (0.5-1.5) H 09/15/17 15:55 POC ABG HHb (Measured) 1.8 % (0-5) 09/15/17 15:55 ABG Methemoglobin 0.8 % (0.0-3.0) 09/15/17 15:55 ABG O2 Capacity 17.1 mL/dl (16-24) 09/15/17 15:55 ABG Potassium 3.7 mmol/L (3.6-5.2) 09/15/17 02:08 Hgb O2 Saturation 95.0 % (95.0-98.0) 09/15/17 15:55 Sodium 141.0 mmol/L (132-148) 09/15/17 02:08 Chloride 110.0 mmol/L (98-107) H 09/15/17 02:08 Glucose 105 mg/dl (75-110) 09/15/17 02:08 Lactate 1.0 mmol/L (0.7-2.1) 09/15/17 02:08 FiO2 21.0 % 09/15/17 15:55 Sodium 146 mmol/L (132-148) 09/17/17 07:00 Potassium 3.6 mmol/L (3.6-5.0) 09/17/17 07:00 Chloride 109 mmol/L (98-107) H 09/17/17 07:00 Carbon Dioxide 26 mmol/L (21-33) 09/17/17 07:00 Anion Gap 14 (10-20) 09/17/17 07:00 BUN 9 mg/dL (7-21) 09/17/17 07:00 Creatinine 0.7 mg/dl (0.8-1.5) L 09/17/17 07:00 Est GFR ( Amer) > 60 09/17/17 07:00 Est GFR (Non-Af Amer) > 60 09/17/17 07:00 POC Glucose (mg/dL) 72 mg/dL (65-110) 09/17/17 11:01 Random Glucose 103 mg/dL (70-110) 09/17/17 07:00 Hemoglobin A1c 5.6 % (4.2-6.5) 09/14/17 22:47 Calcium 9.5 mg/dL (8.4-10.5) 09/17/17 07:00 Phosphorus 2.8 mg/dL (2.5-4.5) 09/16/17 05:30 Magnesium 2.0 mg/dL (1.7-2.2) 09/16/17 05:30 Total Bilirubin 0.8 mg/dL (0.2-1.3) 09/17/17 07:00 AST 13 U/L (17-59) L 09/17/17 07:00 ALT 19 U/L (7-56) 09/17/17 07:00 Alkaline Phosphatase 43 U/L (38-126) 09/17/17 07:00 Total Protein 7.0 g/dL (5.8-8.3) 09/17/17 07:00 Albumin 3.6 g/dL (3.0-4.8) 09/17/17 07:00 Globulin 3.4 gm/dL 09/17/17 07:00 Albumin/Globulin Ratio 1.1 (1.1-1.8) 09/17/17 07:00 Procalcitonin 0.27 NG/ML (0.19-0.49) 09/15/17 07:20 TSH 3rd Generation 0.95 mIU/mL (0.46-4.68) 09/14/17 22:47 Arterial Blood Potassium 3.7 mmol/L (3.6-5.2) 09/15/17 02:08 Urine Color Yellow (YELLOW) 09/14/17 23:14 Urine Appearance Clear (CLEAR) 09/14/17 23:14 Urine pH 6.0 (4.7-8.0) 09/14/17 23:14 Ur Specific [place] 1.025 (1.005-1.035) 09/14/17 23:14 Urine Protein Negative mg/dL (<30 mg/dL) 09/14/17 23:14 Urine Glucose (UA) Negative mg/dL (NEGATIVE) 09/14/17 23:14 Urine Ketones Negative mg/dL (NEGATIVE) 09/14/17 23:14 Urine Blood Negative (NEGATIVE) 09/14/17 23:14 Urine Nitrate Negative (NEGATIVE) 09/14/17 23:14 Urine Bilirubin Negative (NEGATIVE) 09/14/17 23:14 Urine Urobilinogen 0.2 E.U./dL (<1 E.U./dL) 09/14/17 23:14 Ur Leukocyte Esterase Negative Maricruz/uL (NEGATIVE) 09/14/17 23:14 Salicylates < 1 mg/dL (2.0-20.0) L 09/14/17 22:47 Urine Opiates Screen Positive (NEGATIVE) H 09/14/17 23:14 Urine Methadone Screen Negative (NEGATIVE) 09/14/17 23:14 Acetaminophen < 10.0 ug/ml (10.0-20.0) L 09/14/17 22:47 Ur Barbiturates Screen Negative (NEGATIVE) 09/14/17 23:14 Ur Phencyclidine Scrn Positive (NEGATIVE) H 09/14/17 23:14 Ur Amphetamines Screen Negative (NEGATIVE) 09/14/17 23:14 U Benzodiazepines Scrn Positive (NEGATIVE) 09/14/17 23:14 U Oth Cocaine Metabols Positive (NEGATIVE) H 09/14/17 23:14 U Cannabinoids Screen Positive (NEGATIVE) H 09/14/17 23:14 Alcohol, Quantitative < 10 mg/dL (0-10) 09/14/17 22:47 Hepatitis A IgM Ab Negative (NEGATIVE) 09/15/17 07:30 Hep Bs Antigen Negative (NEGATIVE) 09/15/17 07:30 Hep B Core IgM Ab Negative (NEGATIVE) 09/15/17 07:30 Hepatitis C Antibody Negative (NEGATIVE) 09/15/17 07:30 HIV 1&2 Ag/Ab, 4th Gen Nonreactive (Nonreactive) 09/15/17 07:30 - Hospital Course Hospital Course: 32 year old male with a past medical history significant for polysubstance abuse and ISAIAS was brought to the ED via EMS for decreased responsiveness. Patient was found to have abused multiple substances and admitted to snorting 4 bags of heroin. Patient was treated with narcan in the ED with transient responsiveness and was placed on a narcan drip in the ICU, where he was admitted. A chest x-ray showed LACHELLE infiltrate. A CT Head showed no acute intracranial abnormalities and hyperdense focus/mass in the pineal region. An MRI brain was not indicated, per neurology. A lower extremity U/S showed no DVT. An EKG showed sinus tachycardia. A UDS was positive for opiates, benzodiazepines, cocaine, PCP, and cannabinoids. Patient was noted to have a fever of 102 on admission. He was started on Flagyl and Levaquin initially and flagyl was eventually. Patient was eventually transferred out of the ICU when ICU was no longer indicated. Social work was consulted for assistance in finding substance abuse rehab information. Patient was discharged on 09/17/17 with instructions and prescriptions as written below. Patient left [facility] before his medications could be filled so these medications were called into [facility] s pharmacy, excluding the ativan. - Date & Time of H&P Date of H&P: 09/15/17 Time of H&P: 00:23 Discharge Exam - Head Exam Head Exam: ATRAUMATIC, NORMAL INSPECTION, NORMOCEPHALIC - Eye Exam Eye Exam: EOMI, Normal appearance Pupil Exam: NORMAL ACCOMODATION, PERRL - Respiratory Exam Respiratory Exam: Clear to PA & Lateral, NORMAL BREATHING PATTERN, UNREMARKABLE - Cardiovascular Exam Cardiovascular Exam: REGULAR RHYTHM - GI/Abdominal Exam GI & Abdominal Exam: Normal Bowel Sounds, Unremarkable - Extremities Exam Extremities exam: full ROM, normal capillary refill, normal inspection, pedal pulses present - Back Exam Back exam: FULL ROM, NORMAL INSPECTION - Neurological Exam Neurological exam: Alert, CN II-XII Intact, Normal Gait, Oriented x3, Reflexes Normal - Psychiatric Exam Psychiatric exam: Normal Affect, Normal Mood - Skin Skin Exam: Dry, Intact, Normal Color, Warm Discharge Plan - Discharge Medications Prescriptions: levoFLOXacin [Levaquin] 500 mg PO DAILY #7 tab LORazepam [Ativan] 1 mg PO BID #6 tab - Follow Up Plan Condition: CRITICAL Disposition: HOME/ ROUTINE Instructions: Narcotic Overdose (DC), Polysubstance Abuse (DC) Additional Instructions: You are being discharged to home. Please follow up with your primary care doctor within one week Please follow up with outpatient substance abuse rehabilitation facility or detox program recommendations Please stop abusing all substances, whether illicit or prescriptions other than your own, immediately. The harmful effects of these substances have been discussed with you on multiple occasions during your admission Please take all medications as prescribed If your symptoms worsen or persist, please seek emergency medical attention Referrals: Osmani Peralta MD [Primary Care Provider] - <Ej Meek - Last Filed: 09/18/17 17:35> Provider - Provider Date of Admission: 09/14/17 23:49 Attending physician: Ej Meek MD Primary care physician: Osmani Peralta MD Hospital Course - Lab Results Lab Results: Micro Results 09/15/17 00:15 Blood Blood Culture - Preliminary NO GROWTH AFTER 3 DAYS 09/14/17 23:55 Blood Blood Culture - Preliminary NO GROWTH AFTER 3 DAYS 09/15/17 01:15 Nose MRSA Culture (Admit) - Final MRSA NOT DETECTED Most Recent Lab Values WBC 11.4 10^3/ul (4.5-11.0) H 09/17/17 07:00 RBC 5.19 10^6/uL (3.5-6.1) 09/17/17 07:00 Hgb 14.6 g/dL (14.0-18.0) 09/17/17 07:00 Hct 43.4 % (42.0-52.0) 09/17/17 07:00 MCV 83.6 fl (80.0-105.0) 09/17/17 07:00 MCH 28.1 pg (25.0-35.0) 09/17/17 07:00 MCHC 33.6 g/dl (31.0-37.0) 09/17/17 07:00 RDW 14.3 % (11.5-14.5) 09/17/17 07:00 Plt Count 230 10^3/uL (120.0-450.0) 09/17/17 07:00 MPV 10.2 fl (7.0-11.0) 09/17/17 07:00 Gran % 80.1 % (50.0-68.0) H 09/14/17 22:47 Lymph % (Auto) 13.8 % (22.0-35.0) L 09/14/17 22:47 [place] % (Auto) 5.1 % (1.0-6.0) 09/14/17 22:47 Eos % (Auto) 0.8 % (1.5-5.0) L 09/14/17 22:47 Baso % (Auto) 0.2 % (0.0-3.0) 09/14/17 22:47 Gran # 11.97 (1.4-6.5) H 09/14/17 22:47 Lymph # (Auto) 2.1 (1.2-3.4) 09/14/17 22:47 [place] # (Auto) 0.8 (0.1-0.6) H 09/14/17 22:47 Eos # (Auto) 0.1 (0.0-0.7) 09/14/17 22:47 Baso # (Auto) 0.03 K/mm3 (0.0-2.0) 09/14/17 22:47 PT 11.1 SECONDS (9.4-12.5) 09/14/17 23:55 INR 0.97 (0.93-1.08) 09/14/17 23:55 APTT 27.9 Seconds (25.1-36.5) 09/14/17 23:55 pCO2 36 mm/Hg (35-45) 09/15/17 15:55 pO2 81.0 mm/Hg (80-100) 09/15/17 15:55 HCO3 22.3 mmol/L (21-28) 09/15/17 15:55 ABG pH 7.40 (7.35-7.45) 09/15/17 15:55 ABG Total CO2 23.4 mmol.L (22-28) 09/15/17 15:55 ABG O2 Saturation 98.1 % (95-98) H 09/15/17 15:55 ABG O2 Content 16.8 ML/dl (15-23) 09/15/17 15:55 ABG Base Excess -2.1 mmol/L (-2.0-3.0) L 09/15/17 15:55 ABG Hemoglobin 12.5 g/dL (11.7-17.4) 09/15/17 15:55 ABG Carboxyhemoglobin 2.4 % (0.5-1.5) H 09/15/17 15:55 POC ABG HHb (Measured) 1.8 % (0-5) 09/15/17 15:55 ABG Methemoglobin 0.8 % (0.0-3.0) 09/15/17 15:55 ABG O2 Capacity 17.1 mL/dl (16-24) 09/15/17 15:55 ABG Potassium 3.7 mmol/L (3.6-5.2) 09/15/17 02:08 Hgb O2 Saturation 95.0 % (95.0-98.0) 09/15/17 15:55 Sodium 141.0 mmol/L (132-148) 09/15/17 02:08 Chloride 110.0 mmol/L (98-107) H 09/15/17 02:08 Glucose 105 mg/dl (75-110) 09/15/17 02:08 Lactate 1.0 mmol/L (0.7-2.1) 09/15/17 02:08 FiO2 21.0 % 09/15/17 15:55 Sodium 146 mmol/L (132-148) 09/17/17 07:00 Potassium 3.6 mmol/L (3.6-5.0) 09/17/17 07:00 Chloride 109 mmol/L (98-107) H 09/17/17 07:00 Carbon Dioxide 26 mmol/L (21-33) 09/17/17 07:00 Anion Gap 14 (10-20) 09/17/17 07:00 BUN 9 mg/dL (7-21) 09/17/17 07:00 Creatinine 0.7 mg/dl (0.8-1.5) L 09/17/17 07:00 Est GFR ( Amer) > 60 09/17/17 07:00 Est GFR (Non-Af Amer) > 60 09/17/17 07:00 POC Glucose (mg/dL) 72 mg/dL (65-110) 09/17/17 11:01 Random Glucose 103 mg/dL (70-110) 09/17/17 07:00 Hemoglobin A1c 5.6 % (4.2-6.5) 09/14/17 22:47 Calcium 9.5 mg/dL (8.4-10.5) 09/17/17 07:00 Phosphorus 2.8 mg/dL (2.5-4.5) 09/16/17 05:30 Magnesium 2.0 mg/dL (1.7-2.2) 09/16/17 05:30 Total Bilirubin 0.8 mg/dL (0.2-1.3) 09/17/17 07:00 AST 13 U/L (17-59) L 09/17/17 07:00 ALT 19 U/L (7-56) 09/17/17 07:00 Alkaline Phosphatase 43 U/L (38-126) 09/17/17 07:00 Total Protein 7.0 g/dL (5.8-8.3) 09/17/17 07:00 Albumin 3.6 g/dL (3.0-4.8) 09/17/17 07:00 Globulin 3.4 gm/dL 09/17/17 07:00 Albumin/Globulin Ratio 1.1 (1.1-1.8) 09/17/17 07:00 Procalcitonin 0.27 NG/ML (0.19-0.49) 09/15/17 07:20 TSH 3rd Generation 0.95 mIU/mL (0.46-4.68) 09/14/17 22:47 Arterial Blood Potassium 3.7 mmol/L (3.6-5.2) 09/15/17 02:08 Urine Color Yellow (YELLOW) 09/14/17 23:14 Urine Appearance Clear (CLEAR) 09/14/17 23:14 Urine pH 6.0 (4.7-8.0) 09/14/17 23:14 Ur Specific [place] 1.025 (1.005-1.035) 09/14/17 23:14 Urine Protein Negative mg/dL (<30 mg/dL) 09/14/17 23:14 Urine Glucose (UA) Negative mg/dL (NEGATIVE) 09/14/17 23:14 Urine Ketones Negative mg/dL (NEGATIVE) 09/14/17 23:14 Urine Blood Negative (NEGATIVE) 09/14/17 23:14 Urine Nitrate Negative (NEGATIVE) 09/14/17 23:14 Urine Bilirubin Negative (NEGATIVE) 09/14/17 23:14 Urine Urobilinogen 0.2 E.U./dL (<1 E.U./dL) 09/14/17 23:14 Ur Leukocyte Esterase Negative Maricruz/uL (NEGATIVE) 09/14/17 23:14 Salicylates < 1 mg/dL (2.0-20.0) L 09/14/17 22:47 Urine Opiates Screen Positive (NEGATIVE) H 09/14/17 23:14 Urine Methadone Screen Negative (NEGATIVE) 09/14/17 23:14 Acetaminophen < 10.0 ug/ml (10.0-20.0) L 09/14/17 22:47 Ur Barbiturates Screen Negative (NEGATIVE) 09/14/17 23:14 Ur Phencyclidine Scrn Positive (NEGATIVE) H 09/14/17 23:14 Ur Amphetamines Screen Negative (NEGATIVE) 09/14/17 23:14 U Benzodiazepines Scrn Positive (NEGATIVE) 09/14/17 23:14 U Oth Cocaine Metabols Positive (NEGATIVE) H 09/14/17 23:14 U Cannabinoids Screen Positive (NEGATIVE) H 09/14/17 23:14 Alcohol, Quantitative < 10 mg/dL (0-10) 09/14/17 22:47 Hepatitis A IgM Ab Negative (NEGATIVE) 09/15/17 07:30 Hep Bs Antigen Negative (NEGATIVE) 09/15/17 07:30 Hep B Core IgM Ab Negative (NEGATIVE) 09/15/17 07:30 Hepatitis C Antibody Negative (NEGATIVE) 09/15/17 07:30 HIV 1&2 Ag/Ab, 4th Gen Nonreactive (Nonreactive) 09/15/17 07:30 Attending/Attestation - Attestation I have personally seen and examined this patient.: Yes I have fully participated in the care of the patient.: Yes I have reviewed all pertinent clinical information, including history, physical exam and plan: Yes Notes (Text): 09/18/17 17:34 Attending note; Patient seen and examined with resident. Patient is a 32-year-old male with a history of chronic back pain, opiate dependency, polysubstance abuse is admitted after an apparent drug overdose. Patient denied any suicidal attempt. Urine drug screen is positive for opiates, benzos, cocaine, marijuana, PCP. Patient denied using any IV drugs. Patient was treated with IV Narcan and drip. Currently patient is alert and awake. Drug abuse cessation is strongly advised. Aspiration pneumonia; continue levofloxacin. Patient is afebrile and nontoxic. Anxiety/insomnia; patient is using Xanax on and off. Psychiatric evaluation appreciated. Patient is stable. Tolerating diet well. Ambulating fine. Patient will be discharged home today. Upon discharge the patient will follow up with . Diagnosis; Drug abuse Chronic opiate dependency Anxiety
== END 2017-09-17 11:30 | disposition home or self-care (01) | DRG 79 ==
LOC: ED 22:05 → ERH 23:49 → OBSVTOIN 23:49 → ERH 09-15 00:23 → ICU 09-15 00:59 → 5RNO 09-16 10:59
PROVIDERS: ADMIT Internal Medicine; ATTEND Internal Medicine
DX: J69.0 Pneumonitis due to inhalation of food and vomit (principal); F11.20 Opioid dependence, uncomplicated; F14.20 Cocaine dependence, uncomplicated; F13.20 Sedative, hypnotic or anxiolytic dependence, uncomplicated; R09.02 Hypoxemia; T40.1X1A Poisoning by heroin, accidental (unintentional), initial encounter; Z83.3 Family history of diabetes mellitus; Z82.49 Family history of ischemic heart disease and other diseases of the circulatory system; F12.90 Cannabis use, unspecified, uncomplicated; F17.200 Nicotine dependence, unspecified, uncomplicated; F41.9 Anxiety disorder, unspecified; G47.00 Insomnia, unspecified; G47.33 Obstructive sleep apnea (adult) (pediatric); Z91.19 Patient's noncompliance with other medical treatment and regimen; I83.90 Asymptomatic varicose veins of unspecified lower extremity; G89.29 Other chronic pain; Z56.0 Unemployment, unspecified; Z87.81 Personal history of (healed) traumatic fracture; R40.2412 Glasgow coma scale score 13-15, at arrival to emergency department